=== PATIENT | male | born 1965 | race Caucasian/White ===

== ENCOUNTER 2020-06-16 06:44 | Outpatient (CLI) | payer OTHER, SELFPAY ==
[2020-06-16 07:54] LABS: Cholesterol 167 mg/dL (0-200); HDL Direct 50 mg/dL; Triglycerides 95 mg/dL (<150)
[2020-06-16 08:05] LABS: LDL Cholesterol Direct 108 mg/dL
[2020-06-16 08:09] LABS: Hemoglobin A1C 5.2 % (<5.7)
[2020-06-16 08:26] LABS: Prostate Specific Antigen 0.7 ng/mL (< OR = 4.0)
[2020-06-16 08:59] LABS: Folic Acid 12.8 ng/mL (2.76->20)
== END 2020-06-16 06:45 | disposition home or self-care (01) ==
PROVIDERS: PCP Internal Medicine; Visit Provider Internal Medicine
DX: E53.8 Deficiency of other specified B group vitamins (principal); R73.9 Hyperglycemia, unspecified; Z12.5 Encounter for screening for malignant neoplasm of prostate
CPT/HCPCS: 36415; 80061; 82607; 82746; 83036; 84153; 84443; G0103

== ENCOUNTER 2020-07-29 02:23 | Outpatient (CLI) | payer OTHER, SELFPAY ==
[2020-07-29 18:37] LABS: SARS-CoV-2 RNA PCR Negative
== END 2020-07-29 02:24 | disposition home or self-care (01) ==
LOC: ANHCOVIDDT 02:23
PROVIDERS: PCP Internal Medicine; Visit Provider Podiatrist Foot & Ankle Surgery
DX: Z01.812 Encounter for preprocedural laboratory examination (principal); Z20.822 Contact with and (suspected) exposure to COVID-19
CPT/HCPCS: C9803; U0003; U0005

== ENCOUNTER 2020-08-01 01:59 | Day surgery (SDC) | payer OTHER, SELFPAY ==
[2020-07-28 13:33] VITALS: BMI 27.3
--- NOTE | 2020-07-31 15:23 | WPDANESEPPF ---
Anes - Initial Pre Proc Eval Procedure: Operation Date: 08/01/20 07:30 Proposed Procedures p Fusion First Metatarsalphalangeal Joint Right Foot - Howard Byrd JR, MD Date/Time: 07/31/20 15:23 Surgeon: Howard Byrd JR, MD Pre Op Diagnosis: arthritis 1st MPJ right foot Patient Data Age: 55 Gender: M Height: 1.7 m Weight: 79.38 kg Allergies Allergy/AdvReac Type Severity Reaction Status Date / Time No Known Allergies Allergy Verified 08/01/20 06:12 Home Medications Medication Instructions Recorded Confirmed Type mecobalamin (vitamin B12) 5,000 2,500 mcg PO HS tablet 07/07/20 08/01/20 History mcg disintegrating tablet sertraline 50 mg PO HS 07/28/20 08/01/20 History tadalafil [Cialis] 5 mg PO HS 07/28/20 08/01/20 History tamsulosin 0.4 mg PO HS 07/28/20 08/01/20 History ergocalciferol (vitamin D2) 1,250 mcg PO WEEKLY 08/01/20 08/01/20 History [Vitamin D2] Patient hx anesthesia problems: none Family hx anesthesia problems: none PMFSH Past Medical History Medical History (Updated 07/31/20 @ 15:24 by Sean Vick MD) Arthritis BPPV (benign paroxysmal positional vertigo) Overweight (BMI 25.0-29.9) Family History Family History Mother Patient's mother is in good health Other Family history of arthritis Social History Social History Smoking status: Former smoker Second hand tobacco smoke exposure: No Smoking end date: 07/11/88 Additional smoking assessment comments: STATES STOPPED SMOKING AT AGE 23 Alcohol intake: current Drinks per week: 10 Substance use: current Substance use type: marijuana Other substance usage details: STATES SMOKES MARIJUANA DAILY Living arrangements: with family Spiritual care concerns: No Anes - Eval Final PreProcedure Day of Procedure 07/31/20 15:23 Patient weight: overweight Heart: regular rate and rhythm Lungs: clear to auscultation and normal air movement Airway: Mallampati scale class II Neurological: alert and oriented Last oral intake: >/= 8 hours ASA classification: II Emergent: no Anesthetic plan: proceed Anesthesia type and monitoring: general LMA and ETT Informed Consent: The patient's anesthetic plan and its attendant risks and benefits were discussed with the patient/family/POA. Questions were solicited and answers provided to the satisfaction of the patient/family/POA.
--- NOTE | ~2020-08-01 | XR_ITS ---
EXAMINATION: XR surgery orthopedic DATE: 08/01/2020 08:39 INDICATION: Right first metatarsophalangeal arthrodesis TECHNIQUE: 2 fluoroscopic spot images of the forefoot were obtained during procedure performed by Dr. Byrd. Radiologist was not present for the imaging or procedure. The amount of fluoroscopy time u sed during this procedure was 0.2 minutes. COMPARISON: None. FINDINGS: First metatarsophalangeal arthrodesis with dorsal plate and screw fixation. Alignment is essentially anatomic. No fracture. Mild osteoarthritis at a few interphalangeal joints. IMPRESSION: 1. Expected appearance post right first metatarsophalangeal arthrodesis. Reviewed, dictated and finalized at location A. SERVICE TECHNICIAN
[2020-08-01] MEDS: LACTATED RINGERS 1,000 ML 30 ML IV CONT ×2 (06:31→08:56)
[2020-08-01 06:48] VITALS: BP 116/72; PULSE 89; RESP 16; TEMP 36.7; O2SAT 98
--- NOTE | 2020-08-01 07:01 | WPDHPUPDATE1 ---
History and Physical Update Update Date/Time: 08/01/20 07:01 History and Physical has been reviewed, including an updated exam of the patient. There are NO changes in the patient's condition. Risks, benefits, and alternatives have been discussed and questions answered. Patient agrees to proceed with procedure.
[2020-08-01] MEDS: ceFAZolin 2 GM/D5W 50 ML 2 GM/50 ML BAG IVPB (07:29)
--- NOTE | 2020-08-01 07:34 | WPDANESPNB ---
Anes - Peripheral Nerve Block Date/Time: 08/01/20 07:34 I have discussed with the patient/family/POA the placement of a peripheral nerve block for post-operative pain management, including associated risks, benefits, complications, and side effects. Alternative methods of post-operative analgesia were detailed. Questions were solicited and answers provided to the satisfaction of the patient/family/POA. Time-Out: A pre-procedural Time-Out was completed immediately before starting the procedure and confirmed: Patient Identification, Site, Procedure, Patient Position and the Availability of Requisite Equipment. Clinical Indications: Acute post-operative pain management requested by the operative surgeon. Nerve Block Insertion Note Anes-nerve block: posterior fossa sciatic (20cc) right and adductor canal (10cc) right Patient position: supine Skin prep: chlorhexidine Needle: 22 gauge, stimulating, insulated echogenic needle. Needle length: 80 mm Technique: ultrasound (in plane) Injectate: bupivacaine 0.5% with epi 5 mcg/ml (20cc) Observations: tolerated well Complications: none Procedure start time:: 720 Procedure end time:: 725
[2020-08-01 08:56] VITALS: BP 108/70; PULSE 82; RESP 14; O2SAT 99
--- NOTE | 2020-08-01 09:01 | SUR.OPER ---
Implants right foot MTP Fusion Plate 2.7x14 Locking Screw-2 2.7x12 Locking Screw-2 3.5x28 Lag screw [facility]
--- NOTE | 2020-08-01 09:02 | PM.PROC ---
Procedure Note - Detailed Date of procedure: 08/01/20 Pre-op diagnosis: arthritis 1st MPJ right foot Post-op diagnosis: same Procedure performed: Fusion of the first metatarsal phalangeal joint right foot Implants: [employer] cross check plate with (4) 2.7mm locking screws, and one 3.5mm lag screw Anesthesia: GLMA and regional (Popliteal Fossa Block) Surgeon: Howard Byrd JR, DPM Estimated blood loss (mL): 1 Drains: No Packing: No Pathology: none sent Complications: No immediate complications Condition: stable Disposition: same day Findings: PROCEDURE IN DETAIL: Under mild sedation, the patient was brought into the operating room, placed on the operating table in supine position. A pneumatic ankle tourniquet was placed about the patient's right ankle. A popliteal fossa block was performed by the Anesthesia department. The foot was then scrubbed, prepped, and draped in the usual aseptic manner. An Esmarch bandage was then used to exsanguinate the patient's foot and the pneumatic ankle tourniquet was then inflated. Surgery began in the following manner: Attention was directed to the dorsal aspect of the 1st metatarsophalangeal joint where there was a large osteophyte noted along the dorsomedial aspect of the joint. The incision was made starting along the central shaft of the 1st metatarsal and extending just proximal to the interphalangeal joint of the hallux. The incision was continued deep down through the subcutaneous tissues using sharp and blunt dissection. All bleeders were cauterized as necessary. At this point, the dissection was continued down to the level of the periosteum and capsular structures overlying the 1st metatarsophalangeal joint. A full length periosteum and capsular incision was made just medial to the extensor hallucis longus tendon. The periosteum and capsular structures were freed from the base of the proximal phalanx as well as the distal 1st metatarsal. At this point, the 1st metatarsophalangeal joint was identified. There was complete loss of articular cartilage to the head of the 1st metatarsal as well as the base of the proximal phalanx. There was significant broadening and hypertrophy of the 1st metatarsophalangeal joint. Utilizing a sagittal bone saw, the hypertrophied 1st metatarsal was resected dorsally, medially, and laterally. A power bur was used to make sure that there were no rough edges and also to further debride the hypertrophic 1st metatarsal. Next, a rongeur was used to resect all hypertrophic base of the proximal phalanx. All subchondral bone was debrided with power demian, sagittal saw blade and curette from the head of the 1st metatarsal as well as the base of the proximal phalanx. The cartilage and subchondral bone were fully debrided utilizing the reamer system until healthy bleeding bone was noted. Next, a 2-0 drill bit was used to further fenestrate the head of the 1st metatarsal as well as the base of the proximal phalanx in order to allow fusion across the 1st metatarsophalangeal joint. Next, a 0.045 inch K-wire was driven from the medial aspect of the base of the proximal phalanx into the head of the 1st metatarsal in order to serve as temporary fixation. A large steel plate was used to make sure that the hallux was in a rectus position both in the sagittal plane as well as the frontal and transverse plane. Excellent position of the hallux was noted. Next, a CrossCHECK plate was placed atop the 1st metatarsophalangeal joint held in position with Colton wires. Utilizing standard principles and techniques, the 2 distal drill holes were drilled and two 2.7mm fully-threaded locking screws were driven from dorsal to plantar holding the distal aspect of the plate intact. At this point, a lag screw was driven from dorsal distal to proximal plantar across the 1st metatarsophalangeal joint through the plate system with excellent compression noted after careful removal of the olive wire an
[2020-08-01 09:26] VITALS: BP 100/61; PULSE 79; RESP 14
--- NOTE | 2020-08-01 09:52 | SUR.PHASEII ---
PT AMY BOUGHT A PAIR OF CRUTCHES, I OFFERED TO SIZE UP FOR THEM, PT REFUSED.
== END 2020-08-01 09:45 | disposition home or self-care (01) ==
PROVIDERS: PCP Internal Medicine; Visit Provider Podiatrist Foot & Ankle Surgery
PROC: (CPT 28750; principal; 2020-08-01 07:30)
DX: M19.071 Primary osteoarthritis, right ankle and foot (principal); G89.18 Other acute postprocedural pain; Z87.891 Personal history of nicotine dependence; F12.90 Cannabis use, unspecified, uncomplicated
CPT/HCPCS: 28750; 64445; 64447; C1713; C9803; J0690; J2250; J2704; J3010; J7120; U0003; U0005

== ENCOUNTER 2020-11-18 06:48 | Outpatient (CLI) | payer OTHER, SELFPAY ==
[2020-11-18 07:28] LABS: Basophils Percent Auto 0.4 % (0.2-1.2); Eosinophils Absolute Auto 0.2 K/mm3 (0-0.3); Eosinophils Percent Auto 3.2 % (0-4.4); Hematocrit 43.6 % (42.0-52.0); Hemoglobin 14.2 g/dL (14.0-18.0); Immature Granulocyte Absolute 0.02 K/mm3 (0.00-0.031); Immature Granulocyte Percent A 0.3 % (0-0.5); Lymphocytes Absolute Auto 0.75 K/mm3 (0.9-3.2); Mean Corpuscular HGB Conc 32.6 g/dl (32-36); Mean Corpuscular Hemoglobin 31.3 pg (26-34); Mean Platelet Volume 10.4 fl (7.4-10.4); Monocytes Absolute Auto 0.6 K/mm3 (0.1-0.6); Neutrophils Absolute Auto 5.8 K/mm3 (1.3-6.7); Neutrophils Percent Auto 78.1 % (45.5-73.1); Platelet Count Result 252 k/mm3 (150-375); Red Blood Count 4.54 M/mm3 (4.6-6.20); Red Cell Distribution Width 13.2 % (11.5-14.5); White Blood Count 7.5 K/mm3 (4.5-10.0)
[2020-11-18 07:39] LABS: Alanine Aminotransferase 12 U/L (4-50); Albumin Level 4.3 g/dL (3.5-5.1); Alkaline Phosphatase 59 U/L (38-126); Anion Gap 5 mmol/L (8-16); Aspartate Amino Transferase 24 U/L (17-59); Bilirubin,Total 0.4 mg/dL (0.2-1.3); Blood Urea Nitrogen 12 mg/dL (9-20); CRP 1.1 mg/dL (<1.0); Calcium 9.2 mg/dL (8.4-10.2); Carbon Dioxide 30 mmol/L (22-30); Chloride 103 mmol/L (98-107); Estimated Glomerular Filt Rate > 60; Glucose 126 mg/dL (75-110); Potassium 4.2 mmol/L (3.4-5.0); Sodium 138 mmol/L (137-145)
[2020-11-18 07:57] LABS: Erythrocyte Sedimentation Rate 9 mm/hr (0-20)
[2020-11-18 08:15] LABS: Vitamin D 25 Hydroxy 46.2 ng/mL
== END 2020-11-18 06:49 | disposition home or self-care (01) ==
PROVIDERS: PCP Internal Medicine
DX: M19.90 Unspecified osteoarthritis, unspecified site (principal); Z79.899 Other long term (current) drug therapy; E55.9 Vitamin D deficiency, unspecified
CPT/HCPCS: 36415; 80053; 82306; 85025; 85652; 86140

== ENCOUNTER 2021-06-17 17:00 | Outpatient (CLI) | payer OTHER, SELFPAY ==
--- NOTE | ~2021-06-17 | MR_ITS ---
EXAMINATION: MR shoulder LT wo con DATE: 06/17/2021 17:49 INDICATION: Left shoulder pain TECHNIQUE: Magnetic resonance imaging (MRI) of the affected shoulder was performed without intravenou s contrast. Sequences included axial PD-weighted FS FSE, coronal oblique PD-weighted FS FSE, coronal oblique T2-weighted FS FSE, sagittal PD-weighted FS FSE, and sagittal T1-weighted SE. COMPARISON: 09/26/2017 FINDINGS: Coracoacromial arch: The acromion undersurface is curved in morphology (type II). There is mild lateral downsloping of the acromion with small anterior and lateral subacromial spurs at the attachment of the coracoacromial l igament which remains mildly thickened near its acromial attachment. Mild acromioclavicular osteoarth ritis. Rotator cuff: Interval progression of moderate supraspinatus and anterior infraspinatus tendinopathy. Against seen is a severe articular sided tear extending approximately 2 cm AP along the superior and middle facet footplates of the supraspinatus and conjoined portion of the supraspinatus and infraspinatus tendons which involves greater than two thirds of the tendon thickness. There is a small full-thickness compo nent at the posterior infraspinatus tendon measuring approximately 6 mm AP with 1 cm medial retractio n and small moderate residual frayed tendon material remaining attached along the lateral rim of the footplate. The teres minor tendon is normal. Moderate subscapularis tendinopathy with unchanged mild partial-thickness tear along the lateral rim of the lesser tuberosity footplate where there is mild c ystic change. Normal rotator cuff muscle bulk and signal. Biceps tendon, glenoid labrum and glenohumeral cartilage: Long head of the biceps tendon is normal. There is partial thickness cartilage loss at the cephalad a spect of the glenoid with fissuring and chondral surface regularity posterior superiorly. Small clement nal osteophytes along the posterior superior rim of the glenoid where there is labral degeneration wi th small moderate residual frayed labral tissue. The degeneration extends inferiorly with fraying nikki ng the free edge of the posterior labrum. Normal anterosuperior sublingual foramen. Fluid: Small glenohumeral joint effusion. No loose osteochondral bodies. Small amount of fluid in the subacr omial/subdeltoid bursa which could be related to either mild bursitis or decompressed fluid from the glenohumeral joint space centimeter the full-thickness rotator cuff tear. Bones: Bone alignment is normal. No fracture or pathologic marrow replacing process. IMPRESSION: 1. Interval progression of now moderate supraspinatus and infraspinatus tendinopathy with slight prog ression is a moderate-sized, severe articular sided tear with small full-thickness component at the p osterior supraspinatus tendon. 2. Increased now moderate severity subscapularis tendinopathy with unchanged small mild partial-thick ness tear along the lateral rim of the lesser tuberosity footplate. 3. Unchanged mild glenohumeral osteoarthritis with likely chronic degeneration of the posterior super ior glenoid labrum. 4. Unchanged mild acromioclavicular osteoarthritis. Reviewed, dictated and finalized at location B. DRIVER IMPRESSION: 1. Interval progression of now moderate supraspinatus and infraspinatus tendino mj with slight progression is a moderate-sized, severe articular sided tear with small full-thickness component at the posterior supraspinatus tendon. 2. Increased now moderate severity subscapularis tendinopathy with unchanged sm all mild partial-thickness tear along the lateral rim of the lesser tuberosity footplate. 3. Unchanged mild glenohumeral osteoarthritis with likely chronic degeneration of the posterior superior glenoid
== END 2021-06-17 17:01 | disposition home or self-care (01) ==
LOC: ANHIMG 17:07
PROVIDERS: PCP Internal Medicine
DX: M19.012 Primary osteoarthritis, left shoulder (principal)
CPT/HCPCS: 73221

== ENCOUNTER 2021-06-25 06:53 | Outpatient (CLI) | payer OTHER, SELFPAY ==
--- NOTE | 2021-06-25 | ECG_ITS ---
Measurements Intervals [place] Rate: 77 P: 68 VA: 153 QRS: 43 QRSD: 106 T: 55 QT: 354 QTc: 401 Interpretive Statements SINUS RHYTHM NORMAL ECG Electronically Signed On 06-25-2021 10:54:23 LEASING REPRESENTATIVE by Nathaniel Thomas D.O.
[2021-06-25 07:43] LABS: Hematocrit 42.7 % (42.0-52.0); Hemoglobin 13.9 g/dL (14.0-18.0); Mean Corpuscular HGB Conc 32.6 g/dl (32-36); Mean Corpuscular Hemoglobin 32.4 pg (26-34); Mean Corpuscular Volume 99.5 fl (80-100); Mean Platelet Volume 10.7 fl (7.4-10.4); Platelet Count Result 225 k/mm3 (150-375); Red Blood Count 4.29 M/mm3 (4.6-6.20); Red Cell Distribution Width 12.3 % (11.5-14.5); White Blood Count 7.3 K/mm3 (4.5-10.0)
[2021-06-25 07:51] LABS: Alanine Aminotransferase 17 U/L (4-50); Albumin Level 4.5 g/dL (3.5-5.1); Alkaline Phosphatase 58 U/L (38-126); Anion Gap 5 mmol/L (8-16); Aspartate Amino Transferase 26 U/L (17-59); Bilirubin,Total 0.5 mg/dL (0.2-1.3); Blood Urea Nitrogen 17 mg/dL (9-20); Calcium 9.4 mg/dL (8.4-10.2); Carbon Dioxide 25 mmol/L (22-30); Chloride 104 mmol/L (98-107); Estimated Glomerular Filt Rate > 60; Glucose 122 mg/dL (65-110); Potassium 4.4 mmol/L (3.4-5.0); Sodium 134 mmol/L (137-145)
== END 2021-06-25 06:54 | disposition home or self-care (01) ==
LOC: ANHLAB 06:55
PROVIDERS: PCP Internal Medicine; Visit Provider Orthopaedic Surgery
DX: M75.100 Unspecified rotator cuff tear or rupture of unspecified shoulder, not specified as traumatic (principal); Z01.818 Encounter for other preprocedural examination
CPT/HCPCS: 36415; 80053; 85027; 93005

== ENCOUNTER → 2021-06-26 09:18 | Outpatient (CLI) | payer OTHER, SELFPAY ==
[2021-06-28 16:12] LABS: SARS-CoV-2 RNA PCR Negative (Negative)
== END ==
PROVIDERS: PCP Internal Medicine
DX: R68.89 Other general symptoms and signs (principal); Z20.822 Contact with and (suspected) exposure to COVID-19
CPT/HCPCS: C9803; U0003; U0005

== ENCOUNTER 2021-08-14 07:12 | Outpatient (CLI) | payer OTHER, SELFPAY ==
[2021-08-14 08:00] LABS: Basophils Percent Auto 0.5 % (0.2-1.2); Eosinophils Absolute Auto 0.2 K/mm3 (0-0.3); Eosinophils Percent Auto 4.2 % (0-4.4); Hematocrit 40.8 % (42.0-52.0); Hemoglobin 13.6 g/dL (14.0-18.0); Immature Granulocyte Absolute 0.01 K/mm3 (0.00-0.031); Immature Granulocyte Percent A 0.3 % (0-0.5); Lymphocytes Absolute Auto 0.54 K/mm3 (0.9-3.2); Mean Corpuscular HGB Conc 33.3 g/dl (32-36); Mean Corpuscular Hemoglobin 32.3 pg (26-34); Mean Corpuscular Volume 96.9 fl (80-100); Mean Platelet Volume 10.6 fl (7.4-10.4); Monocytes Absolute Auto 0.5 K/mm3 (0.1-0.6); Neutrophils Absolute Auto 2.6 K/mm3 (1.3-6.7); Platelet Count Result 226 k/mm3 (150-375); Red Blood Count 4.21 M/mm3 (4.6-6.20); Red Cell Distribution Width 12.9 % (11.5-14.5); White Blood Count 3.9 K/mm3 (4.5-10.0)
[2021-08-14 08:11] LABS: Alanine Aminotransferase 43 U/L (4-50); Albumin Level 4.4 g/dL (3.5-5.1); Alkaline Phosphatase 52 U/L (38-126); Anion Gap 4 mmol/L (8-16); Aspartate Amino Transferase 46 U/L (17-59); Bilirubin,Total 0.6 mg/dL (0.2-1.3); Blood Urea Nitrogen 11 mg/dL (9-20); CRP < 0.5 mg/dL (<1.0); Calcium 9.2 mg/dL (8.4-10.2); Carbon Dioxide 28 mmol/L (22-30); Chloride 106 mmol/L (98-107); Cholesterol 216 mg/dL (0-200); Estimated Glomerular Filt Rate > 60; Glucose 109 mg/dL (65-110); HDL Direct 44 mg/dL; Sodium 138 mmol/L (137-145); Triglycerides 153 mg/dL (<150)
[2021-08-14 08:20] LABS: LDL Cholesterol Direct 145 mg/dL
[2021-08-14 08:40] LABS: Prostate Specific Antigen 0.4 ng/mL (< OR = 4.0)
[2021-08-14 09:15] LABS: Folic Acid 16.2 ng/mL (2.76->20)
== END 2021-08-14 07:13 | disposition home or self-care (01) ==
PROVIDERS: PCP Internal Medicine; Visit Provider Internal Medicine
DX: Z12.5 Encounter for screening for malignant neoplasm of prostate (principal); K50.012 Crohn's disease of small intestine with intestinal obstruction; Z51.81 Encounter for therapeutic drug level monitoring; Z79.899 Other long term (current) drug therapy; R53.83 Other fatigue; Z00.00 Encounter for general adult medical examination without abnormal findings
CPT/HCPCS: 36415; 80053; 80061; 82607; 82746; 84153; 84443; 85025; 86140; G0103

== ENCOUNTER 2021-10-26 06:59 | Outpatient (CLI) | payer OTHER, SELFPAY | END 2021-10-26 07:00 | disposition home or self-care (01) | PROVIDERS: PCP Internal Medicine | DX: K50.019 Crohn's disease of small intestine with unspecified complications (principal) | CPT/HCPCS: 36415 ==

== ENCOUNTER 2021-12-21 08:00 | Outpatient (CLI) | payer OTHER, SELFPAY | END 2021-12-21 08:01 | disposition home or self-care (01) | LOC: ANHLAB 08:09 | PROVIDERS: PCP Internal Medicine | DX: K50.019 Crohn's disease of small intestine with unspecified complications (principal); Z79.899 Other long term (current) drug therapy | CPT/HCPCS: 36415; 80145 ==

== ENCOUNTER → 2022-04-22 16:12 | Outpatient (CLI) | payer OTHER, SELFPAY ==
--- NOTE | ~2022-04-22 | XR_ITS ---
EXAMINATION: XR hand LT 2V DATE: 04/22/2022 16:43 INDICATION: Unspecified osteoarthritis, unspecified site. TECHNIQUE: 2 views of left hand were obtained. COMPARISON: Left hand radiographs 03/13/2019 FINDINGS: Bone alignment is normal. No fracture. There is severe osteoarthritis of first carpometacar pal joint and moderate osteoarthritis of second and third metacarpophalangeal joints. There is mild o steoarthritis of most of the interphalangeal joints. There is severe osteoarthritis of second distal interphalangeal joint. IMPRESSION: 1. Polyarticular osteoarthritis. Reviewed, dictated and finalized at location A.
--- NOTE | ~2022-04-22 | XR_ITS ---
EXAMINATION: XR sacroiliac joints min 3V DATE: 04/22/2022 16:43 INDICATION: Sacrococcygeal disorders, not elsewhere classified. TECHNIQUE: 3 views of the sacroiliac joints were obtained. COMPARISON: Sacroiliac joint radiographs 03/13/2019 FINDINGS: Bone alignment is normal. No fracture. There is mild osteoarthritis of the sacroiliac joint s characterized by tiny osteophytes. There are implants between the spinous processes at L3-L4 and L4 -L5. IMPRESSION: 1. Mild osteoarthritis of the sacroiliac joints. No evidence of inflammatory arthropathy. Reviewed, dictated and finalized at location A. IMPRESSION: 1. Mild osteoarthritis of the sacroiliac joints. No evidence of inflammatory ar thropathy.
--- NOTE | ~2022-04-22 | XR_ITS ---
EXAMINATION: XR hand RT 2V DATE: 04/22/2022 16:43 INDICATION: Unspecified osteoarthritis, unspecified site. TECHNIQUE: 2 views of right hand were obtained. COMPARISON: Right hand radiographs 03/13/2019 FINDINGS: Bone alignment is normal. No fracture. There is severe osteoarthritis of first carpometacar pal joint and mild osteoarthritis of many of the metacarpophalangeal joints and interphalangeal joint s. There is severe osteoarthritis of second, third, and fifth distal interphalangeal joints. IMPRESSION: 1. Polyarticular osteoarthritis. Reviewed, dictated and finalized at location A.
== END ==
PROVIDERS: PCP Internal Medicine; Visit Provider Nurse Practitioner Family
DX: M53.3 Sacrococcygeal disorders, not elsewhere classified (principal); M19.041 Primary osteoarthritis, right hand; M19.042 Primary osteoarthritis, left hand
CPT/HCPCS: 72202; 73120

== ENCOUNTER 2022-10-04 07:14 | Outpatient (CLI) | payer OTHER, SELFPAY ==
[2022-10-04 08:23] LABS: Basophils Percent Auto 0.7 % (0.2-1.2); Eosinophils Absolute Auto 0.1 K/mm3 (0-0.3); Eosinophils Percent Auto 2.3 % (0-4.4); Hematocrit 42.3 % (42.0-52.0); Hemoglobin 14.2 g/dL (14.0-18.0); Immature Granulocyte Absolute 0.03 K/mm3 (0.00-0.031); Immature Granulocyte Percent A 0.5 % (0-0.5); Lymphocytes Percent Auto 14.7 % (18.3-44.2); Mean Corpuscular HGB Conc 33.6 g/dl (32-36); Mean Corpuscular Hemoglobin 34.1 pg (26-34); Mean Corpuscular Volume 101.4 fl (80-100); Mean Platelet Volume 10.5 fl (7.4-10.4); Monocytes Absolute Auto 0.8 K/mm3 (0.1-0.6); Monocytes Percent Auto 13.7 % (2.6-8.5); Neutrophils Absolute Auto 4.2 K/mm3 (1.3-6.7); Neutrophils Percent Auto 68.1 % (45.5-73.1); Platelet Count Result 201 k/mm3 (150-375); Red Blood Count 4.17 M/mm3 (4.6-6.20); Red Cell Distribution Width 11.8 % (11.5-14.5); White Blood Count 6.1 K/mm3 (4.5-10.0)
[2022-10-04 08:58] LABS: Alanine Aminotransferase 22 U/L (6-50); Albumin Level 4.6 g/dL (3.5-5.1); Alkaline Phosphatase 62 U/L (38-126); Anion Gap 6 mmol/L (8-16); Aspartate Amino Transferase 29 U/L (17-59); Bilirubin,Total 0.5 mg/dL (0.2-1.3); Blood Urea Nitrogen 19 mg/dL (9-20); CRP < 0.5 mg/dL (<1.0); Calcium 9.2 mg/dL (8.4-10.2); Carbon Dioxide 28 mmol/L (22-30); Chloride 103 mmol/L (98-107); Cholesterol 224 mg/dL (0-200); Estimated Glomerular Filt Rate > 60; Glucose 107 mg/dL (65-110); HDL Direct 49 mg/dL; Potassium 4.6 mmol/L (3.4-5.0); Sodium 137 mmol/L (137-145); Triglycerides 306 mg/dL (<150)
[2022-10-04 09:06] LABS: LDL Cholesterol Direct 113 mg/dL
[2022-10-04 10:35] LABS: Prostate Specific Antigen 0.3 ng/mL (< OR = 4.0)
== END 2022-10-04 07:15 | disposition home or self-care (01) ==
PROVIDERS: PCP Internal Medicine; Visit Provider Internal Medicine
DX: K50.019 Crohn's disease of small intestine with unspecified complications (principal); R53.83 Other fatigue; R74.8 Abnormal levels of other serum enzymes; Z79.899 Other long term (current) drug therapy
CPT/HCPCS: 36415; 80053; 80061; 84153; 84443; 85025; 86140; G0103

== ENCOUNTER → 2023-02-08 08:48 | Outpatient (CLI) | payer OTHER, SELFPAY ==
--- NOTE | ~2023-02-08 | XR_ITS ---
EXAMINATION: CT lumbar spine wo con, XR lumbar spine min 4V DATE: 02/08/2023 09:23 INDICATION: Lumbar spondylolisthesis TECHNIQUE: 1. Computed tomography (CT) of the lumbar spine was performed without intravenous contrast. Automated exposure control and iterative reconstruction technique were employed. The dose-length product was 6 54.28 mGy-cm. 2. 7 views of the lumbar spine were obtained including AP, left and right oblique, lateral views in n eutral, flexion and extension and cone-down lateral lumbosacral view. COMPARISON: Lumbar spine MR dated 08/05 and FINDINGS: A degree lumbar levocurvature. There are fixation devices situated between the spinous processes at L 3-L4 and L4-L5. 6 mm anterolisthesis L4 on L5 which remains unchanged on flexion and extension. No ev ident change in orientation or separation of the 2 fixation devices or the degree of spondylolisthesi s with flexion or extension. Otherwise normal motion of the remainder of the lumbar and lower thoraci c spine. Chronic mild anterior wedging at T12, minimal at L1. Severe disc height loss with vacuum phe nomena and degenerative endplate changes at L5-S1. Mild disc height loss at L2-L3 and L4-L5. Mild to moderate disc height loss at T11-T12 and T12-L1. Mild osteoarthritis at the bilateral sacroiliac join ts. Paravertebral soft tissues are unremarkable. The following disc levels are specifically discussed : T11-T12: Disc is mildly bulging. There is moderate bilateral facet joint osteoarthritis. There is mil d right neural foraminal stenosis. There is minimal central canal stenosis. T12-L1: Disc is mildly bulging. There is mild left and moderate right facet joint osteoarthritis. The re is no neural foraminal stenosis. There is minimal central canal stenosis. L1-L2: Disc is mildly bulging. There is mild bilateral facet joint osteoarthritis. There is no neural foraminal stenosis. There is minimal central canal stenosis. L2-L3: Disc is bulging with suggestion of a small right paracentral disc extrusion extending a few mi llimeters cephalad to the level of the inferior endplate of L2. There is mild bilateral facet joint o steoarthritis. There is mild left and mild to moderate right neural foraminal stenosis. There is mild central canal stenosis. L3-L4: Disc is bulging. There is severe bilateral facet joint osteoarthritis. There is moderate right and mild to moderate left neural foraminal stenosis. There is moderate central canal stenosis. L4-L5: Disc is bulging. There is severe bilateral facet joint osteoarthritis. There is moderate bilat eral neural foraminal stenosis. There is moderate to severe central canal stenosis. L5-S1: Disc is bulging. There is moderate bilateral facet joint osteoarthritis. There is moderate rig ht and severe left neural foraminal stenosis. There is moderate central canal stenosis. IMPRESSION: 1. Interval progression of severe lower lumbar predominant spondylosis. 2. Internal fixation devices extending between the L3-L4 and L4-L5 spinous processes with 6 mm vaishali listhesis L4 on L5 all of which remains unchanged with flexion and extension. Reviewed, dictated and finalized at location L. IMPRESSION: 1. Interval progression of severe lower lumbar predominant spondylosis. 2. Internal fixation devices extending between the L3-L4 and L4-L5 spinous proc esses with 6 mm anterolisthesis L4 on L5 all of which remains unchanged with fl exion and extension.
== END ==
PROVIDERS: PCP Neurological Surgery; Visit Provider Neurological Surgery
DX: M43.16 Spondylolisthesis, lumbar region (principal); M48.061 Spinal stenosis, lumbar region without neurogenic claudication; M47.26 Other spondylosis with radiculopathy, lumbar region
CPT/HCPCS: 72110; 72131

== ENCOUNTER 2023-04-04 09:20 | Outpatient (CLI) | payer OTHER, SELFPAY ==
--- NOTE | ~2023-04-04 | XR_ITS ---
EXAMINATION: XR chest 2V DATE: 04/04/2023 10:13 INDICATION: Crohn disease. Spondylolisthesis, lumbar region. Preop. TECHNIQUE: Frontal and lateral views of the chest were obtained. COMPARISON: Chest 2 views 03/13/2019 FINDINGS: There is no pneumonia, pleural effusion, or pneumothorax. The heart size is normal. There a re changes of anterior fusion procedure in cervical spine. There is mild chronic anterior wedging of multiple vertebral bodies. IMPRESSION: 1. No acute cardiopulmonary disease. Reviewed, dictated and finalized at location A.
--- NOTE | 2023-04-04 09:39 | ECG_ITS ---
Measurements Intervals [place] Rate: 73 P: 56 SD: 157 QRS: 15 QRSD: 97 T: 48 QT: 360 QTc: 398 Interpretive Statements SINUS RHYTHM BASELINE ARTIFACT- I, II, III, AVR, AVL, AVF NORMAL ECG COMPARED TO ECG 06/25/2021 07:48:49 NO SIGNIFICANT CHANGES Electronically Signed On 04-04-2023 10:27:48 CDT by Nathaniel Thomas D.O.
[2023-04-04 10:09] LABS: Appearance Urine Clear (Clear); Bilirubin Urine Negative (Negative); Blood Urine Negative (Negative); Color Urine Yellow (Yellow); Glucose Urine UA Negative (Negative); Hemoglobin 14.4 g/dL (14.0-18.0); Ketones Urine Negative (Negative); Leukocyte Esterase Ur Negative LEU/UL (Negative); Mean Corpuscular HGB Conc 32.7 g/dl (32-36); Mean Corpuscular Hemoglobin 31.8 pg (26-34); Mean Corpuscular Volume 97.1 fl (80-100); Mean Platelet Volume 10.9 fl (7.4-10.4); Nitrate Urine Negative (Negative); Platelet Count Result 216 k/mm3 (150-375); Protein Urine Negative (Negative); Red Blood Count 4.53 M/mm3 (4.6-6.20); Red Cell Distribution Width 12.8 % (11.5-14.5); Specific Grav Ur 1.022 (1.001-1.035); Urobilinogen Urine 0.2 mg/dL (<2.0); White Blood Count 7.4 K/mm3 (4.5-10.0); pH Urine 6.5 (5.0-9.0)
[2023-04-04 10:19] LABS: Anion Gap 7 mmol/L (8-16); Blood Urea Nitrogen 13 mg/dL (9-20); Calcium 9.3 mg/dL (8.4-10.2); Carbon Dioxide 27 mmol/L (22-30); Chloride 102 mmol/L (98-107); Estimated Glomerular Filt Rate > 60; Glucose 93 mg/dL (65-110); Potassium 4.4 mmol/L (3.4-5.0); Sodium 136 mmol/L (137-145)
[2023-04-04 10:22] LABS: INR 0.9; Prothrombin Time 12.8 Seconds (11.1-14.7)
[2023-04-04 10:23] LABS: Partial Thromboplastin Time 27.8 SECONDS (22.3-36.8)
[2023-04-04 10:35] LABS: Add Urine Microscopic? YES
== END 2023-04-04 09:21 | disposition home or self-care (01) ==
LOC: ANHSURGERY 09:24
PROVIDERS: PCP Internal Medicine; Visit Provider Neurological Surgery
DX: M43.16 Spondylolisthesis, lumbar region (principal); Z01.818 Encounter for other preprocedural examination
CPT/HCPCS: 36415; 71046; 80048; 81001; 85027; 85610; 85730; 93005

== ENCOUNTER 2023-04-06 01:04 | Day surgery (SDC) | payer OTHER, SELFPAY ==
[2023-03-29 15:22] VITALS: BMI 28.1
--- NOTE | 2023-03-29 15:27 | PC.NURSE ---
Report to the Outpatient Waiting Room, entrance under the green pavilion located off [facility], at time 6:00 on date 04/06/23. Planned Procedure Time: 7:30. Time changes happen often and if your time is changed the preop area will call you the afternoon before. - You and your visitor will be asked to self-screen and do not enter if you have any COVID symptoms. - A mask is optional within the hospital at this time. Patients may have clear liquids (water, carbonated beverages, clear teas, apple juice) until 3 hours prior to surgery (4:30) with a maximum of 20 ounces. - No food from midnight until time of surgery Take the following medications with a SIP of water the morning of surgery: NONE DO NOT STOP ANY OF YOUR OTHER PRESCRIPTION MEDICATIONS PRIOR TO SURGERY ?EXCEPT THE FOLLOWING Medications to discontinue per physician: VITAMINS Date to take last dose: 04/02/23 Please no make-up, nail greenlandic, hairspray, perfume, deodorant, or body powder the day of surgery. No jewelry (including any body piercings) or valuables the day of surgery, leave them at home. Please take a shower or bath the night before, or the morning of, surgery with an antibacterial soap. Wear comfortable, loose fitting clothing. - Jewelry must be removed prior to entering the operating room. Rings and piercings that are not removed may be cut off. - The hospital will not accept responsibility for valuables. - Please leave all valuables, including medications, at home the day of surgery. If you are going home after surgery, a licensed fence post driver must drive you home. - NO public transportation without another adult if you receive anesthesia. - We recommend that an adult stay with you for 24 hours following discharge. - We also recommend that you do not drive, make important decision, drink alcoholic beverages, or take any drugs that were not prescribed by your health care provider for at least 24 hours after your discharge time. Follow any additional instructions given to you from your surgeon. If you or anyone in your household have experienced Covid symptoms in the past week, please notify your surgeon or the nurse liaison at the phone number below for possible testing. Telephone instructions given to PT - BABITA ARCE and asked if any additional questions and then verbalized understanding. Patient advised to call surgeon office or pre surgery nurse liaison [phone] if any additional questions.
[2023-04-06] VITALS (13 sets, daily range): BP systolic 120–145; BP diastolic 72–91; PULSE 78–93; RESP 10–18; TEMP 36–36.6; O2SAT 94–100; BMI 27.8
--- NOTE | ~2023-04-06 | XR_ITS ---
EXAMINATION: XR fluoroscopy no charge DATE: 04/06/2023 10:56 INDICATION: Lumbar laminectomy TECHNIQUE: Single lateral fluoroscopic spot image of the lower lumbar spine was obtained during proce dure performed by Dr. Galeas. Radiologist was not present for the imaging or procedure. The amount o f fluoroscopy time used during this procedure was 0.1 minutes. COMPARISON: CT dated 02/08/2023 FINDINGS: Soft tissue retractors, the tip of a metallic probe and lap sponge markers projecting over the soft t issues posterior to L5. Unchanged mild grade 1 anterolisthesis L4 on L5 with mild associated disc hei ght loss. Moderate to severe disc height loss at L5-S1. Again seen are interspinous process implant s ituated between the spinous processes of L3-L4 and L4-L5. IMPRESSION: 1. Fluoroscopy utilized during neurosurgical procedure at the lower lumbar spine. See procedure note for further detail. Reviewed, dictated and finalized at location A. IMPRESSION: 1. Fluoroscopy utilized during neurosurgical procedure at the lower lumbar spin e. See procedure note for further detail.
[2023-04-06] MEDS: LACTATED RINGERS 1,000 ML 30 ML IV CONT ×2 (06:33→10:45)
--- NOTE | 2023-04-06 06:33 | WPDANESEPPF ---
Anes - Initial Pre Proc Eval Procedure: Operation Date: 04/06/23 07:30 Proposed Procedures p L4-5, L5-6 Lumbar Laminectomy, Removal Coflex Device at L4-5 - Magalis Galeas MD Date/Time: 04/06/23 06:33 Surgeon: Magalis Galeas MD Pre Op Diagnosis: lumbar stenosis, radiculopathy Patient Data Age: 57 Gender: M Height: 1.7 m Weight: 81.65 kg Allergies Allergy/AdvReac Type Severity Reaction Status Date / Time No Known Allergies Allergy Verified 04/06/23 06:21 Home Medications Medication Instructions Recorded Confirmed Type mecobalamin (vitamin B12) 5,000 2,500 mcg PO HS 07/07/20 04/06/23 History mcg disintegrating tablet tadalafil 5 mg tablet (Cialis) 5 mg PO HS #30 tabs 07/27/22 03/29/23 Rx sertraline 50 mg tablet 75 mg PO HS #135 tabs 12/08/22 03/29/23 Rx pantoprazole 40 mg tablet,delayed 40 mg PO QAM #90 tabs 03/07/23 03/29/23 Rx release risankizumab-rzaa 360 mg/2.4 mL 360 mg subcut ONCE 03/29/23 03/29/23 History (150 mg/mL) subcut wearable injector (Jingizi) Patient hx anesthesia problems: none Family hx anesthesia problems: none Results Review: All pre-operative results and documents have been reviewed as part of the pre-operative evaluation. [facility] Past Medical History Medical History (Updated 01/13/23 @ 10:48 by Magalis Galeas MD) Arthritis BPPV (benign paroxysmal positional vertigo) Overweight (BMI 25.0-29.9) Surgical History Surgical History (Updated 04/06/23 @ 06:34 by Avila Stapleton MD) H/O cervical spine surgery H/O lumbosacral spine surgery History of shoulder surgery Family History Family History (Updated 01/13/23 @ 10:15 by Enid Garg MA) Mother Patient's mother is in good health Lung cancer Other Family history of arthritis Social History Social History Social History: Ronny is somewhat confident filling out medical forms. In the last 12 months he has not received assistance from an organization or program. Patient denies currently using recreational or street drugs. He reports having given himself street drugs with a needle. He denies eating a healthy diet and exercising regularly. His current caffeine intake is 1 cup of coffee per day. He awakens 3 times per night to urinate. He reports having difficulty in getting or maintaining an erection. Smoking status: Former smoker Tobacco type: cigarettes Second hand tobacco smoke exposure: No Smoking end date: 07/11/88 Additional smoking assessment comments: QUIT AGE EARLY 20'S Alcohol intake: current Drinks per week: 6 Substance use: current Substance use type: marijuana Other substance usage details: STATES SMOKES MARIJUANA DAILY Lack of Transportation: No Lack of Food: Never True Current Housing: I Have Housing Concerned About Future Housing: No Difficulty Paying Gas/Electric Bills: No Difficulty Paying for Meds: No Currently Unemployed: No Education: High School Diploma/GED Difficulty w/ Childcare or Family Care: No Living arrangements: with family Occupation/Education: retired Spiritual care concerns: No Anes - Eval Final PreProcedure Day of Procedure 04/06/23 06:33 Patient weight: overweight Heart: regular rate and rhythm Lungs: clear to auscultation Airway: Mallampati scale class III and special considerations poor opening and poor extension Neurological: alert and oriented Last oral intake: >/= 8 hours ASA classification: III Emergent: no Anesthetic plan: proceed Anesthesia type and monitoring: general ETT and standard monitoring Results Review: All pre-operative results and documents have been reviewed as part of the pre-operative evaluation. Informed Consent: The patient's anesthetic plan and its attendant risks and benefits were discussed with the patient/family/POA. Questions were solicited and answers provided to the satisfaction of the patient/family/POA.
--- NOTE | 2023-04-06 07:26 | WPDHPUPDATE1 ---
History and Physical Update Update Date/Time: 04/06/23 07:26 History and Physical has been reviewed, including an updated exam of the patient. There are NO changes in the patient's condition. Risks, benefits, and alternatives have been discussed and questions answered. Patient agrees to proceed with procedure. To OR for L4-5, L5-S1 laminectomies, removal of Coflex device at L4-5
--- NOTE | 2023-04-06 07:27 | PM.IMHP ---
H&P: HPI History of Present Illness Date/Time: 04/06/23 07:27 Chief Complaint: right leg pain Narrative: From 01/13: Mr. Hanson is a 57-year-old male with history of Crohn's disease and psoriatic arthritis who is referred by Dr. Boateng for a 2nd opinion regarding his lumbar spine. ? The patient has had a long history of low back pain over the years which has generally been tolerable for him.? He has had many injections over the years through [facility] in [place] and had a Coflex interlaminar stabilization device implanted in 2015.? This past March, the patient began having pain? starting in the lower right lumbar region radiating into the buttock and down the front of the thigh to the knee.? He denies any inciting event.? The thigh pain is really his main complaint at this time.? It is constant and worsens in particular with standing and when initially waking up in the morning.? He has some paresthesias in this area.? He has had pain in his left leg in the past, but nothing within the last year.? He denies any weakness of his legs or bowel or bladder changes.? ? He attempted a few sessions of physical therapy, but he did not like the treatment plan of this therapist, so he has not returned.? He does smoke cannabis for pain which is somewhat helpful. He has tried multiple injections through [facility] office at multiple levels, none of which have been beneficial for him.? He saw Dr. Caballero who recommended a staged procedure in the form of what sounds like a 3 level ALIF followed by a posterior instrumentation. ? The patient felt that this was an extreme form of surgery and is not enthusiastic about undergoing a multiple day procedure.? He therefore requested a 2nd opinion. ? Of note, he has had a previous ACDF C3-[address] Dat Weir around 2013 for radicular arm and neck pain.? He continues to have pain in his neck and his left arm which is currently being managed fairly well with therapy and injections.? He denies any myelopathic symptoms.? He does have quite a bit of hand pain bilaterally which has been attributed to his psoriatic arthritis, and he is being started on medication for this.? He recently left his job due to all of his medical issues.? He does not smoke tobacco and does not take any blood thinners. From 02/24: ? Since his last visit, he has completed a full course of physical therapy which has only worsened his symptoms.? He continues to have back pain radiating down the lateral aspect of his right thigh to his knee.? He denies any left-sided symptoms or new symptoms since his last visit.? He notes that he is scheduled to get an injection of Skyrizi today for his Crohn's disease following which he will have injections every 3 months. ? Of note, he follows with a helper marble finisher at [facility], Dr. Sarina Castillo for this. Review of Systems Review of Systems: All systems reviewed & are unremarkable except as noted in HPI and below PMFSH Past Medical History Medical History (Updated 01/13/23 @ 10:48 by Magalis Galeas MD) Arthritis BPPV (benign paroxysmal positional vertigo) Overweight (BMI 25.0-29.9) Surgical History Surgical History (Updated 04/06/23 @ 06:34 by Avila Stapleton MD) H/O cervical spine surgery H/O lumbosacral spine surgery History of shoulder surgery Family History Family History (Updated 01/13/23 @ 10:15 by Enid Garg MA) Mother Patient's mother is in good health Lung cancer Other Family history of arthritis Social History Social History Social History: Ronny is somewhat confident filling out medical forms. In the last 12 months he has not received assistance from an organization or program. Patient denies currently using recreational or street drugs. He reports having given himself street drugs with a needle. He denies eating a healthy diet and exercising regularly. His current caffeine intake is 1 cup of coffee
[2023-04-06] MEDS: ceFAZolin 2 GM/D5W 50 ML 2 GM/50 ML BAG IVPB ×3 (07:35→21:52)
[2023-04-06] MEDS: BUPIVACAINE/EPINEPHRINE 0.5% 50 ML VIAL 10 ML INFILTRATE (08:10)
--- NOTE | 2023-04-06 10:42 | PM.OP ---
Procedure Note - Brief Procedure Note - Brief Date of procedure: 04/06/23 lumbar stenosis, radiculopathy Post-op diagnosis: Same Procedure performed: L4-5, L5-S1 laminectomies, removal of Coflex device at L4-5 Surgeon: Magalis Galeas MD Anesthesia: GETA and local Findings: Coflex device removed at L4-5. Lamis performed at L4-5 and L5-S1. Fair amount of epidural scar tissue present, particularly at L4-5 disc/interlaminar space Estimated blood loss (mL): 100 Drains: Yes Packing: No Pathology: Yes Complications: None Condition: Stable Disposition: PACU
--- NOTE | 2023-04-06 12:09 | ADMGEN ---
This patient, Ronny Hanson, was admitted to Medical Room 246-01. Patient/family oriented to hospital policies and general routines including ID bracelet, bed and alarms, visiting hours, pain management, procedures, bathroom and other care routines, personal items, smoking policy, room service/diet, and visiting hours. Information on how to activate the Rapid Response Team has been discussed. Patient/Family are encouraged to report perceived risks to care and to ask questions if they do not understand what they are told or what they should do.
[2023-04-06] MEDS: oxyCODONE HCL (*CRX) 5 MG TAB IR PO (12:25)
[2023-04-06] MEDS: SODIUM CHLORIDE 0.9% IV 1,000 ML 100 ML IV CONT (12:26)
--- NOTE | 2023-04-06 14:42 | W.PM.PROC2 ---
Procedure Note - Detailed Date of Procedure 04/06/23 Pre-op Diagnosis lumbar stenosis, radiculopathy Post-op Diagnosis Same Procedure Performed 1. Removal of interspinous Coflex device at L4-5 2. Lumbar laminectomies at L4-5, L5-S1 3. Use of microscope for microsurgical dissection 4. Use of C-arm for fluoroscopy Surgeon Magalis Galeas MD [employer] Rol[employer] PINKY Lo Anesthesia General and Local Indications Mr. Hanson is a 57-year-old male with history of back and particularly radicular right leg pain which has been unresponsive to multiple conservative measures. He previously had interspinous devices placed at L3-4 and L4-5. Imaging revealed severe central stenosis at L4-5 and L5-S1. Surgery in the form of removal of the coflex device at L4-5 and L4-5, L5-S1 laminectomies was recommended. Risks including bleeding, pain, infection, CSF leak, nerve damage, weakness, numbness, failure to relieve symptoms, and anesthetic risks were discussed. The patient provided written informed consent to proceed. Description of Procedure The patient was brought to the operating room, and general anesthesia was induced. The patient was placed prone on the open Jose M table, and all pressure points were padded. Compression devices were placed on the patient's calves. The skin was cleaned with alcohol. The C-arm was brought onto the field to localize the appropriate disc space and assist with incisional planning. The area was prepped and draped in usual sterile fashion. A time out was conducted, and pre-operative antibiotics were administered. Local anesthesia was injected into the planned incision. The previous midline skin incision was reopened with a 10-blade scalpel, and dissection was carried down with the monopolar cautery to open the fascia. Once the spinous processes were located, a subperiosteal dissection was performed to expose the laminae bilaterally. Significant scar tissue and bone growth was noted at the L4-5 level in particular around the Coflex device. A self-retaining retractor was placed. The C-arm was brought in to confirm the correct level. The Coflex device was exposed between the L4 and L5 laminae with the bovie, currettes, and the Leksell. Due to the bone growth and scar tissue present around the device, the exposure of the device was slow and time consuming. Eventually, we were able to squeeze the two sides of the device together to release the prongs from the spinous processes. The device was sent for gross specimen. We then turned our attention to the decompression. A Leksell rongeur was used to remove the spinous processes of L4 and L5 and posterior elements. The high-speed drill was used to thin the laminae to the ligamentum flavum. A curved currette was used to separate the ligament from the bone. Kerrison rongeurs were then used to remove remaining laminae and ligamentum flavum. At the level of the interspinous device, there was scarred ligamentum adherent to the dura. I attempted to separate this from the dura, but due to concern for causing a CSF leak, and as the tissue was soft and therefore not compressing the dura, I elected to leave this in place. Medial facetectomies and foraminotomies were performed at both levels with the kerrison as well. The facet joints were undercut to widen the spinal canal. A Woodsen was then passed into the foraminae on the right side to ensure they were open. The dura appeared well decompressed. Hemostasis was ensured, and the area was copiously irrigated. No evidence of CSF leak was noted. A hemovac drain was placed and tunneled inferiorly. The muscle was loosely approximated with 0-Vicryl. The fascia was closed with 0-Vicryl in an interrupted fashion. The soft tissue was again copiously irrigated. The dermis was closed with 2-0 and 3-0 interrupted Vicryl. The skin was closed with 3-0 running nylon. The drain was secured with a 3-0 nylon as well. Sterile dressings were applied. The patient was returned supine on the [facility],
[2023-04-06] MEDS: ACETAMINOPHEN 500 MG TABLET 1000 MG PO (17:54)
[2023-04-06] MEDS: oxyCODONE HCL (*CRX) 5 MG TAB IR 10 MG PO (18:58)
[2023-04-07 01:47] VITALS: BP 122/74; PULSE 78; RESP 16; TEMP 36.4; O2SAT 99
[2023-04-07] MEDS: oxyCODONE HCL (*CRX) 5 MG TAB IR 10 MG PO ×2 (02:35→08:48)
[2023-04-07] MEDS: ceFAZolin 2 GM/D5W 50 ML 2 GM/50 ML BAG IVPB (05:06)
[2023-04-07 05:47] VITALS: BP 123/70; PULSE 75; RESP 18; TEMP 36.9; O2SAT 98
[2023-04-07] MEDS: SERTRALINE HCL 25 MG TABLET 75 MG PO (08:39)
[2023-04-07] MEDS: CYANOCOBALAMIN 500 MCG TABLET PO (08:39)
[2023-04-07] MEDS: CYANOCOBALAMIN 1,000 MCG TABLET 2000 MCG PO (08:40)
[2023-04-07] MEDS: PANTOPRAZOLE 40 MG TABLET PO (08:40)
[2023-04-07] MEDS: ONDANSETRON INJ 4 MG/2 ML VIAL IV PUSH (08:55)
[2023-04-07 09:32] VITALS: BP 127/70; PULSE 86; RESP 16; TEMP 36.4; O2SAT 98
--- NOTE | 2023-04-07 10:05 | WPDANESPN ---
Anes - Prog Note Post-Op Date/Time: 04/07/23 10:05 Cardiovascular status: normal Respiratory status: normal Airway patency: baseline Mental status: baseline Post-Op hydration status: normal Vital Signs: Last Vital Signs Temp 36.4 C L 04/07/23 09:32 Pulse 86 04/07/23 09:32 Resp 16 04/07/23 09:32 BP 127/70 04/07/23 09:32 Pulse Ox 98 04/07/23 09:32 O2 Del Method Room Air 04/07/23 10:02 O2 Flow Rate 8 04/06/23 10:55 Pain Score (VAS): 10 I/O: Intake & Output 04/06/23 04/07/23 04/07/23 23:59 07:59 15:59 Intake Total 272 50 790 Output Total 770 290 Balance -498 -240 790 Post-procedural complaints: none Patient Feedback: Patient satisfied with anesthetic care.
--- NOTE | 2023-04-07 13:01 | WPDNEUROSGPN ---
Progress Note: A&P Assessment and Plan (1) Status post lumbar laminectomy: Code(s): Z98.890 - Other specified postprocedural states Status: Acute Plan s/p removal of Coflex device at L4-5, L4-S1 laminectomies on 04/06 Plan: -Hemovac drain removed at bedside -Discharge home this afternoon with medications including Medrol dosepak -Follow up in 2 weeks for suture removal -Wound care instructions and restrictions reviewed Subjective Date/time seen: 04/07/23 13:01 Interval history: Mr. Hanson is having incisional pain and persistent right leg pain which is overall unchanged compared to pre-op. He is also noticing some right groin pain. Medications are somewhat helpful. He is voiding independently and ambulated with therapy. He would like to go home today Review of Systems Review of Systems: All systems reviewed & are unremarkable except as noted in HPI and below Exam Narrative: Full strength in lower extremities Sensation intact Dressing c/d/i HV 335cc out since surgery, 65cc since midnight Objective Data Vital Signs Vital Signs: Vital Signs - 24 hr 04/06/23 13:28 04/06/23 13:45 04/06/23 16:04 Temperature 97.6 F Pulse Rate 88 Respiratory Rate 14 Blood Pressure 135/80 Pulse Oximetry 97 Oxygen Delivery Room Air Room Air 04/06/23 17:47 04/06/23 21:10 04/07/23 01:47 Temperature 97.6 F 97.6 F 97.6 F Pulse Rate 78 82 78 Respiratory Rate 15 16 16 Blood Pressure 131/78 120/80 122/74 Pulse Oximetry 98 99 99 Oxygen Delivery 04/07/23 05:47 04/07/23 09:27 04/07/23 09:32 Temperature 98.5 F 97.5 F L Pulse Rate 75 86 Respiratory Rate 18 16 Blood Pressure 123/70 127/70 Pulse Oximetry 98 98 Oxygen Delivery Room Air 04/07/23 10:02 Temperature Pulse Rate Respiratory Rate Blood Pressure Pulse Oximetry Oxygen Delivery Room Air Intake/Output Intake/Output: Intake & Output 04/04/23 04/05/23 04/06/23 04/07/23 23:59 23:59 23:59 23:59 Intake Total 672 840 Output Total 770 290 Balance -98 550 Meds/Results Medications: Active Medications Generic Name Dose Route Start Last Admin Trade Name Freq PRN Reason Stop Dose Admin Acetaminophen 1,000 mg 04/06/23 10:50 04/07/23 12:33 Acetaminophen 500 Mg Tablet PO Not Given Q6H ILANA Al Hydrox/Mg Hydrox/Simethicone 20 ml 04/06/23 10:46 Mag Hydrox/Al Hydrox/Simeth 30 Ml Udc PO Q4H PRN Indigestion/Heartburn Bisacodyl 10 mg 04/06/23 10:46 Bisacodyl 10 Mg Suppository RECTAL DAILY PRN Constipation Cyanocobalamin 2,000 mcg 04/07/23 09:00 04/07/23 08:40 Cyanocobalamin 1,000 Mcg Tablet PO 2,000 mcg QAM ILANA Administration Cyanocobalamin 500 mcg 04/07/23 09:00 04/07/23 08:39 Cyanocobalamin 500 Mcg Tablet PO 500 mcg QAM ILANA Administration Cyclobenzaprine HCl 10 mg 04/06/23 10:46 Cyclobenzaprine Hcl 10 Mg Tablet PO TID PRN Muscle Spasms Docusate Sodium 100 mg 04/06/23 21:00 04/07/23 08:59 Docusate Sodium 100 Mg Capsule PO Not Given Q12HR ILANA Cefazolin Sodium 2 gm in 50 mls @ 100 mls/hr 04/06/23 14:00 04/07/23 05:36 Ancef 2 Gm/D5w 50 Ml IVPB Infused Q8HR ILANA Infusion Sodium Chloride 1,000 mls @ 100 mls/hr 04/06/23 10:50 04/06/23 14:43 Normal Saline Iv IV CONT 30 mls/hr .Q10H ILANA Infusion Miscellaneous Information 0 each 04/06/23 00:01 Tadalafil [Cialis] 5 Mg Tablet = Non Formulary XX 05/06/23 00:00 CLARIFY ILANA Non-Formulary Medication 5 mg 04/06/23 21:00 Tadalafil [Cialis] PO 05/06/23 20:59 HS ILANA Ondansetron HCl 4 mg 04/06/23 10:46 04/07/23 08:55 Ondansetron Inj 4 Mg/2 Ml Vial IV PUSH 4 mg Q8H PRN Administration Nausea And Vomiting Oxycodone HCl 5 mg 04/06/23 10:46 04/06/23 12:25 Oxycodone Hcl (*Crx) 5 Mg Tab Ir PO 5 mg Q6H PRN Administration Pain Rated 4-6 Oxycodone HCl 10 mg 04/06/23 10:46 04/07/23 08:48 Oxycodone Hcl (*Crx) 5 M
--- NOTE | 2023-04-07 13:25 | PC.NURSE ---
On 04/07/23, the student, [Derek Arriola], provided care and completed [facility] documentation on this patient. I have reviewed the student's documentation and agree with the findings.
== END 2023-04-07 13:35 | disposition home or self-care (01) ==
LOC: ANHSURGERY 05:47 → ANH2MED 12:04
PROVIDERS: PCP Internal Medicine; Visit Provider Neurological Surgery
PROC: (CPT 63005; principal; 2023-04-06 07:30)
DX: M48.061 Spinal stenosis, lumbar region without neurogenic claudication (principal); M54.16 Radiculopathy, lumbar region; K50.90 Crohn's disease, unspecified, without complications; L40.50 Arthropathic psoriasis, unspecified; Z79.620 Long term (current) use of immunosuppressive biologic; Z87.891 Personal history of nicotine dependence; Z98.1 Arthrodesis status; F12.90 Cannabis use, unspecified, uncomplicated
CPT/HCPCS: 63047; 63048; 22850; 36415; 71046; 80048; 81001; 85027; 85610; 85730; 88300; 93005; 97161; 97530; 99199; A9270; J0690; J1100; J1170; J2250; J2371; J2405; J2704; J3010; J7030; J7120

== ENCOUNTER 2023-06-17 14:31 | Outpatient (CLI) | payer MEDICAID, SELFPAY ==
--- NOTE | ~2023-06-17 | XR_ITS ---
XR hip RT 2V w AP pelvis 06/17/2023 14:52 Indication: Right hip pain. Nontrauma. Procedure: 3 views right hip including AP pelvis Comparison: 04/22/2022 Findings: There is mild bilateral osteoarthritis of the hips. Pelvic rings are intact. No acute fract ure or traumatic malalignment. Impression: 1: Mild bilateral osteoarthritis of the hips. Reviewed, dictated and finalized at location B. STANT DISTRIBUTION MANAGER Impression: 1: Mild bilateral osteoarthritis of the hips.
== END 2023-06-17 14:32 | disposition home or self-care (01) ==
LOC: ANHIMG 14:38
PROVIDERS: PCP Internal Medicine; Visit Provider Physician Assistant
DX: R10.31 Right lower quadrant pain (principal); M16.0 Bilateral primary osteoarthritis of hip
CPT/HCPCS: 73502

== ENCOUNTER 2023-09-12 08:08 | Outpatient (CLI) | payer OTHER, SELFPAY ==
[2023-09-12 08:43] LABS: Basophils Percent Auto 0.7 % (0.2-1.2); Eosinophils Absolute Auto 0.2 K/mm3 (0-0.3); Eosinophils Percent Auto 3.6 % (0-4.4); Hematocrit 42.2 % (42.0-52.0); Hemoglobin 13.3 g/dL (14.0-18.0); Immature Granulocyte Absolute 0.01 K/mm3 (0.00-0.031); Immature Granulocyte Percent A 0.2 % (0-0.5); Lymphocytes Absolute Auto 0.96 K/mm3 (0.9-3.2); Lymphocytes Percent Auto 16.6 % (18.3-44.2); Mean Corpuscular HGB Conc 31.5 g/dl (32-36); Mean Corpuscular Hemoglobin 29.5 pg (26-34); Mean Corpuscular Volume 93.6 fl (80-100); Mean Platelet Volume 10.6 fl (7.4-10.4); Monocytes Absolute Auto 0.6 K/mm3 (0.1-0.6); Monocytes Percent Auto 10.6 % (2.6-8.5); Neutrophils Absolute Auto 3.9 K/mm3 (1.3-6.7); Neutrophils Percent Auto 68.3 % (45.5-73.1); Platelet Count Result 232 k/mm3 (150-375); Red Blood Count 4.51 M/mm3 (4.6-6.20); Red Cell Distribution Width 13.8 % (11.5-14.5); White Blood Count 5.8 K/mm3 (4.5-10.0)
[2023-09-12 09:05] LABS: Alanine Aminotransferase 23 U/L (6-50); Albumin Level 4.4 g/dL (3.5-5.1); Alkaline Phosphatase 59 U/L (38-126); Anion Gap 6 mmol/L (8-16); Aspartate Amino Transferase 33 U/L (17-59); Bilirubin,Total 0.8 mg/dL (0.2-1.3); Blood Urea Nitrogen 13 mg/dL (9-20); CRP 0.6 mg/dL (<1.0); Calcium 9.2 mg/dL (8.4-10.2); Carbon Dioxide 25 mmol/L (22-30); Chloride 107 mmol/L (98-107); Cholesterol 197 mg/dL (0-200); Estimated Glomerular Filt Rate > 60; Glucose 108 mg/dL (65-110); HDL Direct 41 mg/dL; Potassium 4.1 mmol/L (3.4-5.0); Sodium 138 mmol/L (137-145); Triglycerides 127 mg/dL (<150)
[2023-09-12 09:14] LABS: LDL Cholesterol Direct 137 mg/dL
[2023-09-12 09:19] LABS: Erythrocyte Sedimentation Rate 12 mm/hr (0-20)
[2023-09-12 10:12] LABS: Hepatitis B Surface Antigen Negative (Negative)
[2023-09-14 16:28] LABS: NIL 0.01 IU/mL; Quantiferon TB Plus, 1T NEGATIVE (NEGATIVE); TB1-NIL 0.03 IU/mL
[2023-09-15 13:24] LABS: Red Blood Cell Folate 533 ng/mL RBC (>280)
== END 2023-09-12 08:09 | disposition home or self-care (01) ==
PROVIDERS: PCP Internal Medicine
DX: K50.012 Crohn's disease of small intestine with intestinal obstruction (principal); Z79.899 Other long term (current) drug therapy; Z00.00 Encounter for general adult medical examination without abnormal findings
CPT/HCPCS: 36415; 80053; 80061; 82607; 82747; 85025; 85652; 86140; 86480; 87340

== ENCOUNTER 2023-09-23 10:06 | Outpatient (CLI) | payer OTHER, SELFPAY ==
--- NOTE | ~2023-09-23 | XR_ITS ---
AP view of the pelvis and AP and lateral views of the right hip Clinical history: Pain Findings: No acute fracture or dislocation is seen. Osseous alignment is anatomic. Minimal degenerati ve change of the right hip joint noted. Soft tissues are unremarkable. Impression: Minimal degenerative change of the right hip joint. Reviewed, dictated and finalized at [facility]. Impression: Minimal degenerative change of the right hip joint.
== END 2023-09-23 10:07 | disposition home or self-care (01) ==
LOC: ANHIMG 10:07
PROVIDERS: PCP Internal Medicine; Visit Provider Orthopaedic Surgery
DX: M16.11 Unilateral primary osteoarthritis, right hip (principal)
CPT/HCPCS: 73502

== ENCOUNTER 2024-01-03 08:34 | Outpatient (CLI) | payer OTHER, SELFPAY ==
[2024-01-03 20:08] LABS: Prostate Specific Antigen 1.2 ng/mL (< OR = 4.0)
== END 2024-01-03 08:35 | disposition home or self-care (01) ==
LOC: ANHLAB 08:35
PROVIDERS: PCP Internal Medicine; Visit Provider Internal Medicine
DX: Z12.5 Encounter for screening for malignant neoplasm of prostate (principal)
CPT/HCPCS: 36415; 84153; G0103

== ENCOUNTER 2024-11-20 09:05 | Outpatient (CLI) | payer MEDICARE, SELFPAY ==
--- OUTSIDE RECORDS SUMMARY | 2024-11-20 09:12 | XMS_ITS | Encounter Summary ---
Author Organization [facility] Address [address] [place] [address] Phone Care Team Providers Care Leather Finisher Name Role Phone Kenny Boateng MD Primary Care Provider [phone] Encounter Details Date Type Department Care Team (Late st Contact Info) Description 10/26/2021 Orders Only [facility] Scanning, Provider Social History Tobacco Use Types Packs/Day Years Used Date Smoking Tobacco: Former Smokeless Tobacco: Never Alcohol Use Standard Drinks/Week Comments Yes 0 (1 standard drink = 0.6 oz pur e alcohol) AUDIT-C Answer Date Recorded Q1: How often do you have a drink containing alc ohol? 2-3 times a week 03/11/2021 Q2: How many drinks containi ng alcohol do you have on a typical day when you are drinking? 1 or 2 03/11/2021 Q3: How often do you have si x or more drinks on one occasion? Never 03/11/2021 Sex and Gender Information Value Date Recorded Sex Assigned at Not on file Legal Sex Male 9:15 PM FUDGE [employer]AND[employer] Gender Identity Not on file Sexual Orientation Not on file documented as of this encounter Plan of Treatment Not on file documented as of this encounter Procedures Procedure Name Priority Date/Time Associated Diagnosis Comments SCAN - LABS 10/26/2021 documented in this encounter Results * SCAN - LABS (10/26/2021) us Provider Scanning Edited Result - Final documented in this encounter Visit Diagnoses Not on filedocumented in this encounter Care Teams Leather Finisher Relationship Specialty Start Date End Date Kenny Boateng MD [address] [facility] [address] [place] [address] PCP - General 07/07/16 documented as of this encounter
--- OUTSIDE RECORDS SUMMARY | 2024-11-20 09:12 | XMS_ITS | Clinical Summary ---
Author Organization [facility] Address [address] [facility] [place] [address] Care Team Providers Care Resource Economist Name Role Phone JohanKenny lorenzo Jessy ALEJO Primary Care Provider [phone] Phu Weir MD Unavailable [phone] Source Comments [facility],non-owned Affiliates and Associated Physician Practices is amultiple site organization consisting of ambulatory clinics and hospital sitesin [place], [place], [place] and [place]. This disclosure is being madepursuant to the Care Everywhere program and may not contain all information available regarding this patient. Last updated 18.[facility] Allergies No known active allergies Medications * Be aware that medications may not be up to date on this document. Alwaysverify current medications with the patient. Tadalafil (CIALIS PO) Take by mouth. Active Esomeprazole Magnesium (NEXIUM PO) Take by mouth. Active oxymetazoline (AFRIN NASAL SPRAY) 0.05 % nasal spray Haven 1 Haven into each nostril 2 times daily. Active hydrocodone-luther taminophen (NORCO) 5-325 MG tablet Take 1-2 Tabs by mouth every 4 hours as needed for Pain. 50 Tab 0 05/08/2014 Active piroxicam (FELDENE) 20 MG capsule Take 1 Cap by mouth once daily. 30 Cap 5 07/08/2014 Active diclofenac sodium (VOLTAREN) 1 % gel Apply 4 g to affected area 4 times daily. 4 Tube 5 07/16/2014 Active celecoxib (CELEBREX) 200 MG capsule TAKE ONE CAPSULE BY MOUTH EVERY DAY 30 Cap 11 11/25/2014 Active diazepam (VALIUM) 5 MG tablet TAKE 1 TABLET BY MOUTH THREE TIMES DAILY NEEDED FOR MUSCLE SPASM 60 Tab 3 02/10/2015 Active Active Problems Problem Noted Date Diagnosed Date Spinal stenosis, lumbar uma on, without neurogenic claudication 02/24/2012 Social History Tobacco Use Types Packs/Day Years Used Date Smoking Tobacco: Some Days Cigarettes 0.1 28 Pipe Smokeless Tobacco: Former Quit: 05/02/1982 Tobacco Cessation:Ready to Q uit: No; Counseling Given: Yes Alcohol Use Standard Drinks/Week Comments Yes 8.3 (1 standard drink = 0.6 oz p ure alcohol) Sex and Gender Information Value Date Recorded Sex Assigned at Not on file Legal Sex Male 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 Gender Identity Not on file Sexual Orientation Not on file 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 Not on file Not on fi le Last Filed Vital Signs Vital Sign Reading Time Taken Comments Blood Pressure 141/87 05/02/2014 5:40 PM CDT Pulse 85 05/02/2014 5:40 PM CDT Temperature 36.7 C (98 F) 05/02/2014 5:40 PM CDT Respiratory Rate 18 05/02/2014 5:40 PM CDT Oxygen Saturation 99% 05/02/2014 5:40 PM CDT Inhaled Oxygen Concentration - - Weight 81.6 kg (180 lb) 11/18/2014 2:34 PM CDT Height 170.2 cm (5' 7 ) 11/18/2014 2:34 PM CDT Body Mass Index 28.19 11/18/2014 2:34 PM CDT Plan of Treatment Health Maintenance Due Date Last Done Comments COLOGUARD (AGES 45-75) - COL ON CA SCREENING 1965 COLON MONITORING 1965 COLONOSCOPY - COLON CA SCREENING 1965 CT COLONOGRAPHY - COLON CA SCREENING 1965 Colorectal Cancer Screening 1965 FIT - COLON CA SCREENING 1965 FLEX SIG - COLON CA SCREENING 1965 LIPID TESTING 1965 HIV SCREENING 1980 HEPATITIS C SCREENING 06/02/1983 DTAP/TDAP/TD VACCINES (1 - Tdap) 1984 HEPATITIS B VACCINE (1 of 3 - 19+ 3-dose series) 1984 PNEUMOCOCCAL VACCINE 50+ (1 of 2 - PCV) 1984 ZOSTER VACCINE (1 of 2) 2015 COVID-19 VACCINE (1 - 2023-2 5 season) 2024 DEPRESSION SCREENING 07/11/2024 INFLUENZA VACCINE (Season Ended) 2025 HIB VACCINE Aged Out No longer eligi ble based on patient's age to complete this topic HPV VACCINE Aged Out No longer eligi ble based on patient's age to complete this topic MENINGOCOCCAL (Group B) VACC INE SHARED DECISION-MAKING Aged Out No longer eligibl e based on patient's age to complete this topic MENINGOCOCCAL GROUPS A/C/Y/W VACCINE Aged Out No longer eligible b ased on patient's age to complete this topic Medical Devices Implanted Type Area Fishing Captain Device Identifier Shelf Expiration Date Model / Serial / Lot Gemma Zuletax Bone 1.0cc - [id number] Implanted:Qty : 1 on 05/02/2014 by Phu Weir MD at [facility] Sp[facility] Cervical Spinal [employer] 11/29/2016 [id number] / [id number] / Space Cerv - [id number] Implanted:Qty : 1 on 05/02/2014 by Phu Weir MD at [facility] Sp[facility] Cervical Medtronic [employer] 02/19/2017 [facility] [employer] / [id number] / [id number] Description:Cervical 4-5 SN#[id number] [id number] Space Cerv - [id number] Implanted:Qty : 1 on 05/02/2014 by Phu Weir MD at [facility] Sp[facility] Cervical [employer] 01/28/2017 [facility] [employer] / [id number] / [id number] Description:Cervical 5-6 Space Cerv - [id number] Implanted:Qty : 1 on 05/02/2014 by Phu Weir MD at [facility] Sp[facility] Cervical [employer] 01/24/2017 [facility] [employer] / [id number] / [id number] Description:Cervical 6-7 Plate Ant Cerv Assem 62.5mm Implanted:Qty : 1 on 05/02/2014 by Phu Weir MD at [facility] Cervical [employer] [id number] / / Scrw Self Drill Fuad 4.0 X 15 Implanted:Qty : 2 on 05/02/2014 by Phu Weir MD at [facility] Cervical [employer] [id number] / / Scrw Self Drill Fuad 4.0 X 17 Implanted:Qty : 6 on 05/02/2014 by Phu Weir MD at [facility] Sp[facility] Cervical [employer] Spine [id number] / / Insurance [facility] [employer]ETNA [facility] SELF PAY NO INSURANCE Member Subscriber Plan / Payer (Ef fective for All Dates) Name:Giacomo Arce Member ID:Not on file Relation to Subscriber:Self Name:Giacomo Arce Subscriber ID:Not on file Payer ID:Not on file Group ID:Not on file Type:Self Pay Address: [place], [place] Advance Directives * Full Code (Latest Code Status on File) Date Activated Date Inactivated Comments 05/02/2014 1:29 PM 05/02/2014 8:24 PM Care Teams Resource Economist Relationship Specialty Start Date End Date Kenny Boateng DO [address] [place] [address] PCP - General Internal Medicine 01/03/12 Phu Weir MD [address] [place] [address] Neurological Surgery 02/21/12
--- OUTSIDE RECORDS SUMMARY | 2024-11-20 09:13 | XMS_ITS | Referral Summary ---
Author Organization [facility] Address [address] [place] [address] Care Team Providers Care Solution Maker Name Role Phone Kenny Boateng MD Primary Care Provider [phone] Allergies Active Allergy Reactions Criticality Noted Date Comments Iodinated Contrast Media Nausea & Vomiting Low 06/[address] (PROTONIX) 40 mg EC tablet take 1 tablet by oral route every day 0 0 6 Active tadalafil (CIALIS) 5 mg tablet take 1 tablet by oral route every day 0 0 6 Active sertraline (ZOLOFT) 50 mg tablet take 1 tablet by oral route every day 0 0 6 Active folic acid (FOLVITE) 1 mg tabletIndicatio ns:Crohn's disease of small intestine with intestinal obstruction (HCC) Take 1 tablet (1 mg total) by mouth daily 30 tablet 11 4 Active predniSONE (DELTASONE) 10 mg tabletIndicatio ns:autoimmune disease Take 3 tablets (30 mg) by mouth daily as directed. Contact office in one week with a progress report. 90 tablet 4 Active risankizumab-rz aa (Skyrizi) 360 mg/2.4 mL (150 mg/mL) wearable injectorIndicat ions:Crohn's Disease 1 Cartridge by subcutaneous (via wearable injector) route every 8 weeks 2.4 mL 1 4 Active Active Problems Problem Noted Date Diagnosed Date Joint pain in both hands 02/13/2022 Assessment & Plan (02/13/2022 12:52 PM CDT): Patient does not seem to be having of robust response to Humira and azathioprine with regards to joint pain. We would recommend that he reestablish with a rn integrated. If his endoscopic procedures cannot be scheduled in a short time frame, we will consider a Medrol Dosepak to help with his hand pain. Rash 02/13/2022 Assessment & Plan (02/13/2022 12:54 PM CDT): The red spots on his skin do not look like an overt paradoxical psoriasis. Not clear exactly what they represent so would recommend follow-up with Dermatology. Irritable bowel syndrome with diarrhea Assessment & Plan (02/13/2022 12:51 PM CDT): Patient is encouraged to take a small dose of Imodium before bedtime and again in the morning if needed. This dose can be increased if well tolerated. As he complains of a lot of tenesmus and urgency, we suspect he may have some rectal spasms and will offer him Levsin. If he continues to have a lot of symptoms but his Crohn's appears to be in remission, he may benefit from other neuromodulators High risk medications (not anticoagulants) long- term use 06/19/2021 Assessment & Plan (02/13/2022 12:53 PM CDT): We will repeat quarterly labs today Crohn's disease of small int estine with intestinal obstruction 04/28/2021 Assessment & Plan (02/13/2022 12:49 PM CDT): As the patient now has adequate Humira levels and previously had an appropriate 6 TG on azathioprine, we would like to repeat a colonoscopy and EGD to evaluate his response to therapy. Imaging has been helpful but unfortunately the patient indicates that he had substantial trouble with oral CT contrast (severe nausea vomiting). His drug list reports IV contrast instead. It is not clear if he would tolerate an MR enterography or a small bowel follow-through better. His most recent imaging was done without oral and IV contrast. We will recheck safety labs along with metabolites today. If the patient is not well controlled on Humira, we may need to transition to another therapy ideally 1 that would have benefits to his joints. He does not remember methotrexate helping his joints much. He is also not sure prednisone was particularly helpful. We would recommend that he reestablish care with Dermatology and Rheumatology still allow him the most options for effective treatment Plan 1. Safety labs today including metabolites 2. Continue current medications for now 3. Repeat colonoscopy plus EGD as soon as possible to evaluate response to therapy 4. Consider imaging but will need further insight on exactly what he is able to tolerate. 5. Patient is to establish care with Rheumatology and Dermatology to offer the most targeted and collaborative treatment for his conditions Resolved Problems Problem Noted Date Diagnosed Date Resolved Date Chronic diarrhea 03/02/2021 06/19/2021 Overview (03/02/2021): Added automatically from request for surgery [id number] Social History Tobacco Use Types Packs/Day Years Used Date Smoking Tobacco: Former Smokeless Tobacco: Never Tobacco Cessation:Counseling Given: Not Answered Alcohol Use Standard Drinks/Week Comments Yes 0 (1 standard drink = 0.6 oz pur e alcohol) AUDIT-C Answer Date Recorded Q1: How often do you have a drink containing alc ohol? 2-3 times a week 03/01/2022 Q2: How many drinks containi ng alcohol do you have on a typical day when you are drinking? 1 or 2 03/01/2022 Q3: How often do you have si x or more drinks on one occasion? 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 Gender Identity Not on file Sexual Orientation Not on file Last Filed Vital Signs Vital Sign Reading Time Taken Comments Blood Pressure 116/72 12/27/2023 10:30 AM CDT Pulse 69 12/27/2023 10:30 AM CDT Temperature 37.1 C (98.7 F) 12/27/2023 9:30 AM CDT Respiratory Rate 16 12/27/2023 10:30 AM CDT Oxygen Saturation 96% 12/27/2023 10:30 AM CDT Inhaled Oxygen Concentration - - Weight 81.2 kg (179 lb) 12/27/2023 9:30 AM CDT Height 170.2 cm (5' 7 ) 12/27/2023 9:30 AM CDT Body Mass Index 28.04 12/27/2023 9:30 AM CDT Plan of Treatment Not on file Procedures Procedure Name Priority Date/Time Associated Diagnosis Comments COLONOSCOPY 03/01/2022 9:50 AM CDT from Last 3 Months or Most Recently Relevant to Health Maintenance Results * COLONOSCOPY (03/01/2022 9:50 AM CDT) Anatomical Region Laterality Modality Other Narrative Procedure Note Sarina Castillo MD PhD - 03/01/2022 9:50 AM CDT ENDOSCOPY LAB Patient Name: Ronny Hanson Procedure Date: 03/01/2022 9:50 AM Date of : 1965 Admit Type: Outpatient Age: 56 Gender: Male Attending MD: Sarina Castillo MD,PHD Room: [facility] ENDOSCOPY ROOM 03 Note Status: Finalized Procedure: Colonoscopy Indications: Disease activity assessment of Crohn's disease ofthe small bowel, Assess therapeutic response to therapyof Crohn's disease of the small bowel Providers: Sarina Castillo MD, PHD Referring MD: Kenny Boateng MD Medicines: Monitored Anesthesia Care Complications: No immediate complications. Estimated Blood Loss: Estimated blood loss: none. Procedure: Pre-Anesthesia Assessment: - Immediately prior to administration ofmedications, the patient was re-assessed for adequacy to receive sedatives. The benefits, risks and alternatives of theprocedure and sedation were discussed and informed consentwas obtained. All questions were answered. Please referto the signed informed consent document in the medical record. The scope was passed under direct vision.The [id number] was introduced through the anusand advanced to the terminal ileum. The colonoscopy was performed without difficulty. The patient tolerated the procedure well. The quality of the bowel preparation was excellent. The quality of the bowel preparation was evaluated using the BBPS (BostonBowel Preparation Scale) with scores of: Right Colon = 3, Transverse Colon = 3 and Left Colon = 3 (entiremucosa seen well with no residual staining, smallfragments of stool or opaque liquid). The total BBPS score equals 9. The bowel preparation used was SUPREP via split dose instruction. Bowel prep was administered using a split dose. Findings: The perianal and digital rectal examinations were normal. The terminal ileum contained a single 5 mm ulcer with stenosis, which could not be traversed. It could not be dilated given known 10 cm TI involvement on previouis imaging study. Biopsies were taken with acold forceps for histology. The rest of terminal ileum appeared normal. Biopsies were taken witha cold forceps for histology. Normal mucosa was found in the entire colon. Biopsies were taken witha cold forceps for histology. The entire examined colon appeared normal on direct and retroflexion views. Impression: - A single ulcer with stenosis in the terminalileum. Biopsied. Significant improvement compared to thelast colonoscopy. - The rest of the terminal ileum was normal.Biopsied. - Normal mucosa in the entire colon. Biopsied. - The entire examined colon is normal on direct and retroflexion views. Recommendation: - Await pathology results. - Await MRE - Need to see rheumatology and dermatology soon - Return to GI clinic as previously scheduled. Attending Participation: I personally performed the entire procedure. Electronically signed by Sarina Castillo MD. Sarina Castillo MD, PHD 03/01/2022 10:18:28 AM Number of Addenda: 0 Note Initiated On: 03/01/2022 9:50 AM Sarina Castillo MD PhD ENDOSCOPY PROCEDURES Jennifer l Result from Last 3 Months or Most Recently Relevant to Health Maintenance Insurance GENERIC COPAY ASSIST [address] [facility] [id number] [place] [address] [facility] Advance Directives For more information, please contact: [phone] * Full Code (Latest Code Status on File) Date Activated Date Inactivated Comments 03/01/2022 8:19 AM 03/01/2022 3:16 PM * Full Code Date Activated Date Inactivated Comments 03/11/2021 1:33 PM 03/11/2021 8:34 PM Care Teams Solution Maker Relationship Specialty Start Date End Date Kenny Boateng MD [address] [facility] [address] [place], [place] [id number] PCP - General 07/07/16
--- OUTSIDE RECORDS SUMMARY | 2024-11-20 09:13 | XMS_ITS | Encounter Summary ---
Author Organization [facility] Address [address] [place] [address] Care Team Providers Care Field Specialist Name Role Phone Kenny Boateng DO Primary Care Provider [phone] Phu Weir MD Unavailable [phone] Encounter Details Date Type Department Care Team (Late st Contact Info) Description 10/04/2018 Lab Requisition [facility] Care DermPath Lab [address] [facility] [place] [address] Daniela Thornton MD [address] [facility] [address] [place] [address] Social History Tobacco Use Types Packs/Day Years Used Date Smoking Tobacco: Some Days Cigarettes 0.1 28 Pipe Smokeless Tobacco: Former Quit: 05/02/1982 Alcohol Use Standard Drinks/Week Comments Yes 8.3 (1 standard drink = 0.6 oz p ure alcohol) Sex and Gender Information Value Date Recorded Sex Assigned at Not on file 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 Answer Date of Assessment Author No 05/02/2014 7:20 PM Renée Hart RN * Is person blind or have serious difficulty seeing? Answer Date of Assessment Author No 05/02/2014 7:20 PM CDRenée Ash RN * Does person have serious difficulty walking/climbing stairs? Answer Date of Assessment Author No 05/02/2014 7:20 PM Renée Hart RN * Does person have difficulty dressing/bathing? Answer Date of Assessment Author No 05/02/2014 7:20 PM Renée Hart RN * Does person have difficulty doing errands alone? Answer Date of Assessment Author No 05/02/2014 7:20 PM Renée Hart RN documented as of this encounter Mental Status * Does person have difficulty concentrating/remembering/making decisions? Answer Entry Date Author No 05/02/2014 7:20 PM Renée Hart RN documented in this encounter Plan of Treatment Not on file documented as of this encounter Procedures Procedure Name Priority Date/Time Associated Diagnosis Comments DERMATOPATHOLOGY Routine 10/03/2018 12:0 0 AM CDT documented in this encounter Results * DERMATOPATHOLOGY (10/03/2018 12:00 AM CDT) Case Report Dermatopathology Report Case: [id number] Authorizing Provider: Daniela Thornton MD Collected: 10/03/2018 12:00 AM Pathologist: Giselle Mariano MD Received: 10/04/2018 07:09 AM Specimen: Skin, left upper arm 9 12:31 PM CDT DERMATOPATHOLOGY LABORATORY Final Diagnosis Specimen A. SKIN, left upper arm: BENIGN VERRUCOUS KERATOSIS (L82.1) EPIDERMAL NECROSIS SUGGESTIVE OF EXCORIATION (L98.499) 9 12:31 PM CDT DERMATOPATHOLOGY LABORATORY Clinical History ISK vs other. 9 12:31 PM CDT DERMATOPATHOLOGY LABORATORY Gross Description Specimen A: Received is one formalin filled container labeled with the patient's name and designated left upper arm. The specimen consists of a shave biopsy measuring 9x7x2 mm. Jar 0. 9 12:31 PM CDT DERMATOPATHOLOGY LABORATORY Microscopic Description Specimen A. SKIN, left upper arm: Sections show hyperkeratosis, papillomatosis, hypergranulosis, and acanthosis. These histological findings can be seen in a verruca vulgaris or a seborrheic keratosis. The epidermis is focally necrotic and covered with a scale-crust. There is fibrin at the base. 12:31 PM CDT DERMATOPATHOLOGY LABORATORY Disclaimer An external and internal positive and negative controls are appropriate for the histochemical, immunohistochemical and immunofluorescence stain(s) in this case (if any), except where stated explicitly. The performance characteristics of the stain(s) cited in this report were developed and its performance characteristic determined by the Dermatopathology Laboratory at [facility], directed by Dr. Naheed Phipps. These tests need not be, and therefore are not, approved by the [place] Food and Drug Administration. The tests are used for clinical purposes. Billing Codes Specimen Charges Stain Charges 54283 1 12:31 PM CDT DERMATOPATHOLOGY LABORATORY Embedded Images 12:31 PM CDT DERMATOPATHOLOGY LABORATORY Pathology/Cytolog y TISSUE SPECIMEN FROM SKIN / Unknown 10/03/2018 10/04/2018 7:09 AM CDT Daniela Thornton MD LAB - PATHOLOGY/CYTOLOGY OR DERABLES Final Result DERMATOPATHOLOGY LABORATORY [facility] - Department of Dermatology [address] [facility] Lab [address] [phone] documented in this encounter Visit Diagnoses Not on filedocumented in this encounter Care Teams Field Specialist Relationship Specialty Start Date End Date Kenny Boateng DO [address] [address] PCP - General Internal Medicine 01/03/12 Phu Weir MD [address] [address] Neurological Surgery 02/21/12 documented as of this encounter
--- OUTSIDE RECORDS SUMMARY | 2024-11-20 09:13 | XMS_ITS | Encounter Summary ---
Author Organization [facility] Address [address] [facility] [place] [address] Care Team Providers Care Line Installation Supervisor Name Role Phone Kenny Boateng DO Primary Care Provider [phone] Phu Weir MD Unavailable Encounter Details Date Type Department Care Team (Late st Contact Info) Description 07/23/2014 Therapy Visit [facility] Phu Weir MD [address] [facility] [address] [place] [address] Social History Tobacco Use Types Packs/Day Years Used Date Smoking Tobacco: Some Days Cigarettes 0.1 28 Pipe Smokeless Tobacco: Former Quit: 05/02/1982 Alcohol Use Standard Drinks/Week Comments Yes 8.3 (1 standard drink = 0.6 oz p ure alcohol) Sex and Gender Information Value Date Recorded Sex Assigned at Not on file 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 Answer Date of Assessment Author No 05/02/2014 7:20 PM Renée Hart RN * Is person blind or have serious difficulty seeing? Answer Date of Assessment Author No 05/02/2014 7:20 PM Renée Hart RN * Does person have serious difficulty [...] on file documented as of this encounter Visit Diagnoses Not on filedocumented in this encounter Care Teams Line Installation Supervisor Relationship Specialty Start Date End Date Kenny Boateng DO [address] [place] [address] PCP - General Internal Medicine 01/03/12 Phu Weir MD [address] [place] [address] Neurological Surgery 02/21/12 documented as of this encounter
--- OUTSIDE RECORDS SUMMARY | 2024-11-20 09:13 | XMS_ITS | Encounter Summary ---
Author Organization [facility] Address [address] [place] [address] Phone Care Team Providers Care Land Management Forester Name Role Phone Kenny Boateng MD Primary Care Provider [phone]- [phone] Encounter Details Date Type Department Care Team (Late st Contact Info) Description 09/12/2023 Orders Only [facility] Scanning, Provider [...] Never 03/01/2022 Personal Safety Answer Date Recorded Have you ever been in or are you currently in a harmful physical or emotional relationship or is someone making you feel afraid or unsafe? 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 Gender Identity Not on file Sexual Orientation Not on file documented as of this encounter Plan of Treatment Not on file documented as of this encounter Procedures Procedure Name Priority Date/Time Associated Diagnosis Comments SCAN - LABS 09/12/2023 documented in this encounter Results * SCAN - LABS (09/12/2023) us Provider Scanning Final Result documented in this encounter Visit Diagnoses Not on filedocumented in this encounter Care Teams Land Management Forester Relationship Specialty Start Date End Date Kenny Boateng MD [address] [facility] [address] [place] [address] PCP - General 07/07/16 documented as of this encounter
--- OUTSIDE RECORDS SUMMARY | 2024-11-20 09:13 | XMS_ITS | Encounter Summary ---
Author Organization [facility] [employer] of [facility] Address [address] [place] [address] Phone Care Team Providers Care Tape Recording Machine Operator Name Role Phone Kenny Boateng MD Primary Care Provider [phone]- [phone] Kenny Boateng MD Primary Care Provider +1- [phone] Encounter Details Date Type Department Care Team (Late st Contact Info) Description 10/07/2015 Orders Only [facility] Scanning, Provider Social History Tobacco Use Types Packs/Day Years Used Date Smoking Tobacco: Never Assessed Sex and Gender Information Value Date Recorded Sex Assigned at Not on file 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 Gender Identity Not on file Sexual Orientation Not on file documented as of this encounter Plan of Treatment Not on file documented as of this encounter Procedures Procedure Name Priority Date/Time Associated Diagnosis Comments SCAN - RADIOLOGY/IMAGING 10/06/2015 documented in this encounter Results * SCAN - RADIOLOGY/IMAGING (10/06/2015) Anatomical Region Laterality Modality Other us Provider Scanning Edited Result - Final documented in this encounter Visit Diagnoses Not on filedocumented in this encounter Care Teams Tape Recording Machine Operator Relationship Specialty Start Date End Date Kenny Boateng MD [address] [facility] [address] [place] [address] PCP - General 07/07/16 Kenny Boateng MD [address] [facility] [address] [place] [address] PCP - General 06/15/16 07/06/16 documented as of this encounter
--- OUTSIDE RECORDS SUMMARY | 2024-11-20 09:13 | XMS_ITS | Clinical Summary ---
Author Organization [facility] Address [address] [place] [address] Care Team Providers Care Wharf Labourer Name Role Phone Kenny Boateng MD Primary Care Provider [phone]- [phone] Allergies Active Allergy Reactions Criticality Noted Date [...] would recommend that he reestablish with a clerk travel reservations. If his endoscopic procedures cannot be scheduled [...] (03/02/2021): Added automatically from request for surgery [id number] Surgical History Surgery Date Site/Laterality Comments ANTERIOR CERVICAL DISCECTOMY W/ FUSION 07/11/2013 - 06/12 ROTATOR CUFF REPAIR UPPER GASTROINTESTINAL ENDOSCOPY LUMBAR LAMINECTOMY 07/11/2014 - 07/10/2015 Medical History Medical History Date Comments Arthritis Degenerative disc disease, lumbar Joint pain Crohn disease (HCC) 2020 Family History Medical History Relation Name Comments Colon cancer Maternal Grandfather Lung cancer Mother Colon cancer Mother's Brother Crohn's disease Mother's Sister Rheum arthritis Other Family histo ry of Rheumatoid arthritis; Relation Name Status Comments Maternal Grandfather Mother Mother's Brother Mother's Sister Other Sister Alive Social History Tobacco Use Types Packs/Day Years [...] on file 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 Gender Identity Not on file Sexual Orientation Not on file Obstetrics History Last Filed Vital Signs Vital Sign Reading [...] 12/27/2023 9:30 AM CDT Plan of Treatment Health Maintenance Due Date Last Done Comments Depression Screening 1965 Hepatitis C Screening 1965 Prostate Cancer Screening-PSA 1965 DTaP/Tdap/Td Vaccine (1 - Tdap) 1976 Hepatitis B Screening 1983 Regular Well Visit/Exam 18-64 1983 Zoster Vaccine (1 of 2) 2015 Covid-19 Vaccine (3 - 2023-2 5 season) 2024 09/08/2020, 08/18/2020 Influenza Vaccine (Season Ended) 2025 Colon Cancer Screening-Colonoscopy 03/01/2032 03/01/2022, 03/11/2021 Pneumococcal vaccine <65 Aged Out No longer eligible based on patient's age to complete this topic Procedures Procedure Name Priority Date/Time Associated Diagnosis [...] Male Attending MD: Sarina Castillo MD,PHD Room: [facility] ENDOSCOPY ROOM 03 Note Status: Finalized [...] The scope was passed under direct vision.The [id number] was introduced through the anusand advanced to [...] 0 Note Initiated On: 03/01/2022 9:50 AM us Sarina Castillo MD PhD ENDOSCOPY PROCEDURES Jennifer l Result from Last 3 Months or Most Recently Relevant to Health Maintenance Insurance GENERIC COPAY ASSIST [address] [facility] [id number] [place] [address] [facility] [employer]ET[employer] SIG [id number] [facility] Advance Directives For more information, please contact: [phone] * Full Code (Latest Code Status on File) Date Activated Date Inactivated Comments 03/01/2022 8:19 AM 03/01/2022 3:16 PM * Full Code Date Activated Date Inactivated Comments 03/11/2021 1:33 PM 03/11/2021 8:34 PM Care Teams Wharf Labourer Relationship Specialty Start Date End Date Kenny Boateng MD [address] [place] [address] PCP - General 07/07/16
--- OUTSIDE RECORDS SUMMARY | 2024-11-20 09:13 | XMS_ITS | Clinical Summary ---
Author Organization [facility] Address [address] [place] [address] Care Team Providers Care Associate Professor Of Biostatistics Name Role Phone Kenny Boateng MD Primary Care Provider [phone] Allergies Active Allergy Reactions Criticality Noted Date Comments Iodine Rash,GI Upset Medium 03/03/2024 Medications SKYRIZI 360 MG/2.4ML body injector Inject 2.4 mLs (360 mg total) into the skin every 30 (thirty) days. 02/10/2024 Active baclofen (LIORESAL) 10 MG tablet Take 1 tablet (10 mg total) by mouth nightly at bedtime. 02/27/2024 Active famotidine (PEPCID) 20 MG tablet Take 1 tablet (20 mg total) by mouth nightly at bedtime. 02/27/2024 Active tadalafil (CIALIS) 5 MG tablet Take 1 tablet (5 mg total) by mouth nightly at bedtime. at bedtime. 01/25/2024 Active Active Problems Problem Noted Date Diagnosed Date Crohn's disease with complication ([facility] HHS/H CC) 03/07/2024 CC (Crohn's colitis), with fistula ([facility]) 03/07/2024 SBO (small bowel obstruction) ([facility]) 02/27/2024 Joint pain in both hands 02/13/2022 Overview (02/27/2024): Last Assessment & Plan: Patient does not seem to be having of robust response to Humira and azathioprine with regards to joint pain. We would recommend that he reestablish with a cigarette stamper. If his endoscopic procedures cannot be scheduled in a short time frame, we will consider a Medrol Dosepak to help with his hand pain. Rash 02/13/2022 Overview (02/27/2024): Last Assessment & Plan: The red spots on his skin do not look like an overt paradoxical psoriasis. Not clear exactly what they represent so would recommend follow-up with Dermatology. Irritable bowel syndrome with diarrhea Overview (02/27/2024): Last Assessment & Plan: Patient is encouraged to take a small [...] remission, he may benefit from other neuromodulators Crohn's disease of ileum wit h complication ([facility]) 04/28/2021 Overview (02/27/2024): Last Assessment & Plan: As the patient now has adequate Humira [...] targeted and collaborative treatment for his conditions Spinal stenosis, lumbar uma on, without neurogenic claudication 02/24/2012 Family History Medical History Relation Comments GI problems Mother Relation Status Comments Mother Social History Tobacco Use Types Packs/Day Years Used Date Smoking Tobacco: Never Smokeless Tobacco: Never Alcohol Use Standard Drinks/Week Comments Not Currently 0 (1 standard drink = 0.6 oz pur e alcohol) [facility] Utilities Answer Date Recorded In the past 12 months has e [email or web address], gas, oil, or water [employer] threatened to shut off services in your home? No 02/27/2024 Humiliation, Afraid, Rape, and Kick questionnair e Answer Date Recorded Within the last year, have y ou been afraid of your partner or ex-partner? No 02/27/2024 Within the last year, have y ou been humiliated or emotionally abused in other ways by your partner or ex-partner? No Within the last year, have y ou been kicked, hit, slapped, or otherwise physically hurt by your partner or ex-partner? No 02/27/2024 Within the last year, have y ou been raped or forced to have any kind of sexual activity by your partner or ex-partner? No 02/27/2024 Overall Financial Resource Strain (CARDIA) Answe r Date Recorded How hard is it for you to pa y for the very basics like food, housing, medical care, and heating? Not hard at all 02/27/2024 Hunger Vital Sign Answer Date Recorded Within the past 12 months, y ou worried that your food would run out before you got the money to buy more. Never true 02/27/20 24 Within the past 12 months, t he food you bought just didn't last and you didn't have money to get more. Never true 02/27/2024 PRAPARE - Transportation Answer Date Re corded In the past 12 months, has l ack of transportation kept you from medical appointments or from getting medications? No 02/08 In the past 12 months, has l ack of transportation kept you from meetings, work, or from getting things needed for daily living? No 02/27/2024 Housing Stability Vital Sign Answer Kevin e Recorded In the last 12 months, was t here a time when you were not able to pay the mortgage or rent on time? No 02/27/2024 In the past 12 months, how m any times have you moved where you were living? 0 02/27/2024 At any time in the past 12 [facility], were you homeless or living in a long-term (including now)? No 02/27/2024 Sex and Gender Information Value Date Recorded Sex Assigned at Not on file Legal Sex Male 7:59 PM CDT Gender Identity Not on file Sexual Orientation Not on file Last Filed Vital Signs Vital Sign Reading Time Taken Comments Blood Pressure 110/79 04/09/2024 1:34 PM CDT Pulse 62 04/09/2024 1:34 PM CDT Temperature 36.2 C (97.2 F) 04/09/2024 1:34 PM CDT Respiratory Rate 17 03/06/2024 12:51 PM CDT Oxygen Saturation 95% 04/09/2024 1:34 PM CDT Inhaled Oxygen Concentration - - Weight 81.6 kg (180 lb) 04/09/2024 1:34 PM CDT Height 170.2 cm (5' 7 ) 04/09/2024 1:34 PM CDT Body Mass Index 28.19 04/09/2024 1:34 PM CDT Plan of Treatment Health Maintenance Due Date Last Done Comments Colorectal Cancer Screening Colonoscopy (10 Years) 1965 Annual Physical 1968 Hepatitis C 1983 DTaP, Tdap and Td Vaccines ( 1 - Tdap) 1984 Pneumococcal Vaccine: 50+ Years (1 of 1 - PCV) 2015 Zoster Vaccines (1 of 2) 2015 COVID-19 Vaccine (2023-2 5 season) 2024 09/08/2020, 08/18/2020 PHQ-2 (Physician [place]) 07/11/2024 Meningococcal B Vaccine Aged Out No l onger eligible based on patient's age to complete this topic Meningococcal Vaccine Aged Out No sherron bolivar eligible based on patient's age to complete this topic RSV Immunizations Under 20 Months Aged Out No longer eligible b ased on patient's age to complete this topic Insurance [employer] Advance Directives Documents on File Type Date Recorded Patient Geography Professor Expl anation Advance Directives and Living Will 03/01/2024 8:16 AM 02/29/2024 [place] STATUTORY SHORT FORM POA FOR HEALTH CARE * Full Code (Latest Code Status on File) Date Activated Date Inactivated Comments 02/27/2024 3:12 PM 03/04/2024 1:47 PM Healthcare Agents on File Name Relationship Healthcare Agent Relationshi p Communication Abena Hanson Spouse Health Care Agent Care Teams Associate Professor Of Biostatistics Relationship Specialty Start Date End Date Kenny Boateng MD [address] [place] [address] PCP - General INTERNAL MEDICINE 05/11/22
--- NOTE | 2024-11-20 11:15 | NEURO_ITS ---
Impression: # Complains of numbness of left hand. Not diabetic. # Left mild Carpal Tunnel Syndrome. # Left ulnar neuropathy across the elbow. # Abnormal needle/EMG exam. Nerve Conduction Studies Anti Sensory Summary Table Stim Site NR Peak (ms) P-T Amp (µV) Site1 Site2 Delta-P (ms) Dist (cm) Darrian (m/s) Left Median Anti Sensory (2-3nd Digit) Wrist 3.8 13.6 Wrist 2-3nd Digit 3.8 14.0 37 Wrist 3.8 6.1 Wrist 2-3nd Digit 3.8 14.0 37 Left Radial Anti Sensory (Base 1st Digit) Wrist 2.0 19.9 Wrist Base 1st Digit 2.0 0.0 Left Ulnar Anti Sensory (5th Digit) Wrist 2.8 19.2 Wrist 5th Digit 2.8 14.0 50 Motor Summary Table F Wave Studies NR F-Lat (ms) L-R F-Lat (ms) Left Median (Mrkrs) (Abd Poll Brev) 30.70 Left Ulnar (Mrkrs) (Abd Dig Min) 27.84 EMG Side Muscle Nerve Root Ins Act Fibs Amp Dur Recrt Comment Left 1stDorInt Ulnar C8-T1 Nml Nml Incr >12ms +1 Left Ext Indicis Radial (Post Int) C7-8 Nml Nml Nml Nml Nml Left Ext Digitorum Radial (Post Int) C7-8 Nml Nml Nml Nml Nml Left BrachioRad Radial C5-6 Nml Nml Nml Nml Nml Left PronatorTeres Median C6-7 Nml Nml Nml Nml Nml Left Abd Poll Brev Median C8-T1 Nml Nml Incr >12ms Nml Left ABD Dig Min Ulnar C8-T1 Nml Nml Incr >12ms +1 Left FlexPolLong Median (Ant Int) C7-8 Nml Nml Nml Nml Nml Left Abd Poll Long Radial (Post Int) C7-8 Nml Nml Nml Nml Nml MTDD
== END 2024-11-20 09:06 | disposition home or self-care (01) ==
PROVIDERS: PCP Internal Medicine; Visit Provider Internal Medicine
DX: R20.2 Paresthesia of skin (principal); G56.02 Carpal tunnel syndrome, left upper limb; G56.22 Lesion of ulnar nerve, left upper limb
CPT/HCPCS: 95886; 95909

== ENCOUNTER 2024-12-04 10:11 | Outpatient (CLI) | payer MEDICARE, SELFPAY ==
--- NOTE | ~2024-12-04 | XR_ITS ---
HISTORY: S93.409A - Sprain of unspecified ligament of unspecified ... COMPARISON: None TECHNIQUE: 2 views of the right ankle were performed FINDINGS: No acute fracture or dislocation. No significant soft tissue swelling. The ankle mortise is preserved. Bone mineralization is age-appropriate. IMPRESSION: No acute fracture or dislocation. Reviewed, dictated and finalized at location A.
--- OUTSIDE RECORDS SUMMARY | 2024-12-04 10:16 | XMS_ITS | Encounter Summary ---
Author Organization [facility] Health Address [address] [place] [address] Care Team Providers Care Hand I Blocker Name Role Phone Kenny Boateng DO Primary Care Provider [phone]- [phone] Phu Weir MD Unavailable Encounter Details Date Type Department Care Team (Late st Contact Info) Description 07/23/2014 Therapy Visit EXTERNAL NON-[facility] DEPT Phu Weir MD [address] [facility] [address] [place] [address] Social History Tobacco Use Types Packs/Day Years Used Date Smoking Tobacco: Some Days Cigarettes 0.1 28 Pipe Smokeless Tobacco: Former Quit: 05/02/1982 Alcohol Use Standard Drinks/Week Comments Yes 8.3 (1 standard drink = 0.6 oz p ure alcohol) Sex and Gender Information Value Date Recorded Sex Assigned at Not on file Legal Sex Male 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
--- OUTSIDE RECORDS SUMMARY | 2024-12-04 10:16 | XMS_ITS | Encounter Summary ---
Author Organization [facility] Address [address] [facility] [address] [place] [address] Care Team Providers Care Brim Rounder Name Role Phone Kenny Boateng DO Primary Care Provider [phone]- [phone] Phu Weir MD Unavailable [phone] Encounter Details Date Type Department Care Team (Late st Contact Info) Description 10/04/2018 Lab Requisition [facility] Care DermPath Lab [address] [facility] [place] [address] Daniela Thornton MD [address] [facility] [address] [place] [address] Social History Tobacco Use Types Packs/Day Years Used Date Smoking Tobacco: Some Days Cigarettes 0.1 28 Pipe Smokeless Tobacco: Former Quit: 05/02/1982 Alcohol Use Standard Drinks/Week Comments Yes 8.3 (1 standard drink = 0.6 oz p ure alcohol) Sex and Gender Information Value Date Recorded Sex Assigned at Not on file 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 SKIN, left upper arm: BENIGN VERRUCOUS KERATOSIS (L82.1) EPIDERMAL NECROSIS SUGGESTIVE OF EXCORIATION (L98.499) 9 12:31 PM CDT DERMATOPATHOLOGY LABORATORY at 1231 CDT Clinical History ISK vs other. 9 12:31 [...] characteristic determined by the Dermatopathology Laboratory at [facility], directed by Dr. Naheed Phipps. These tests need not be, and therefore are not, approved by the [place] Food and Drug Administration. The tests are used for clinical purposes. Billing Codes Specimen Charges Stain Charges 10602 1 12:31 PM CDT DERMATOPATHOLOGY LABORATORY Embedded Images 12:31 PM CDT DERMATOPATHOLOGY LABORATORY Pathology/Cytolog y TISSUE SPECIMEN FROM SKIN / Unknown 10/03/2018 10/04/2018 7:09 AM CDT Daniela Thornton MD LAB - PATHOLOGY/CYTOLOGY OR DERABLES Final Result DERMATOPATHOLOGY LABORATORY [facility] - Department of Dermatology [address] 5th Floor Lab [address] [phone] documented in this encounter Visit Diagnoses Not on filedocumented in this encounter Care Teams Brim Rounder Relationship Specialty Start Date End Date Kenny Boateng DO [address] [facility] [address] [address] PCP - General Internal Medicine 01/03/12 Phu Weir MD [address] [facility] [address] [address] Neurological Surgery 02/21/12 documented as of this encounter
--- OUTSIDE RECORDS SUMMARY | 2024-12-04 10:16 | XMS_ITS | Clinical Summary ---
Author Organization [facility] Address [address] [place] [address] Care Team Providers Care Fire Investigation Manager Name Role Phone JohanKenny lorenzo Jessy ALEJO Primary Care Provider [phone] Phu Weir MD Unavailable [phone] Source Comments [facility],non-owned Affiliates and Associated Physician Practices is amultiple site organization consisting of ambulatory clinics and hospital sitesin [place], [place], [place] and [place]. This disclosure is being madepursuant to the Care Everywhere program and may not contain all information available regarding this patient. Last updated 18.[facility] Allergies No known active allergies Medications * Be aware that medications may not be up to date on this document. Alwaysverify current medications with the patient. Tadalafil (CIALIS PO) Take by mouth. Active Esomeprazole Magnesium (NEXIUM PO) Take by mouth. Active oxymetazoline (AFRIN NASAL SPRAY) 0.05 % nasal spray [place] 1 [place] into each nostril 2 times daily. 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 Not on file Not [...] 2:34 PM CDT Height 170.2 cm (5' 7) 11/18/2014 2:34 PM CDT Body Mass Index [...] this topic Medical Devices Implanted Type Area Admitting Interviewer Device Identifier Shelf Expiration Date Model / Serial / Lot Gemma Zuletax Bone 1.0cc - [id number] Implanted:Qty : 1 on 05/02/2014 by Phu Weir MD at [facility] Spine Cervical Spinal [employer] 11/29/2016 [id number] / [id number] / Space Cerv - [id number] Implanted:Qty : 1 on 05/02/2014 by Phu Weir MD at [facility] Spine Cervical Medtronic [employer]or [employer] 02/19/2017 [facility] MEDTRONIC / [id number] / [id number] Description:Cervical 4-5 SN#[id number] Space Cerv - [id number] Implanted:Qty : 1 on 05/02/2014 by Phu Weir MD at [facility] Spine Cervical Medtronic [employer] 01/28/2017 [facility] [employer] / [id number] / [id number] Description:Cervical 5-6 Space Cerv - [id number] Implanted:Qty : 1 on 05/02/2014 by Phu Weir MD at [facility] Spine Cervical Medtronic [employer] 01/24/2017 [facility] [employer] / [id number] / [id number] Description:Cervical 6-7 Plate Ant Cerv Assem 62.5mm Implanted:Qty : 1 on 05/02/2014 by Phu Weir MD at [facility] Spine Cervical Medtronic [employer] [id number] / / Scrw Self Drill Fuad 4.0 X 15 Implanted:Qty : 2 on 05/02/2014 by Phu Weir MD at [facility] Spine Cervical Medtronic [employer] [id number] / / Scrw Self Drill Fuad 4.0 X 17 Implanted:Qty : 6 on 05/02/2014 by Phu Weir MD at [facility] Spine Cervical Medtronic Sofamor [employer]ane[employer] Spine [id number] / / Insurance [facility] [employer]ETNA [facility] SELF PAY NO INSURANCE Member Subscriber Plan / Payer (Ef fective for All Dates) Name:Giacomo Arce Member ID:Not on file Relation to Subscriber:Self Name:Giacomo Arce Subscriber ID:Not on file Payer ID:Not on file Group ID:Not on file Type:Self Pay Address: [place], [place] Advance Directives * Full Code (Latest Code Status on File) Date Activated Date Inactivated Comments 05/02/2014 1:29 PM 05/02/2014 8:24 PM Care Teams Fire Investigation Manager Relationship Specialty Start Date End Date Kenny Boateng DO [address] [facility] [address] [place] [address] PCP - General Internal Medicine 01/03/12 Phu Weir MD [address] [facility] [address] [place] [address] Neurological Surgery 02/21/12
== END 2024-12-04 10:12 | disposition home or self-care (01) ==
LOC: ANHIMG 10:14
PROVIDERS: PCP Internal Medicine; Visit Provider Internal Medicine
DX: S93.409A Sprain of unspecified ligament of unspecified ankle, initial encounter (principal); X58.XXXA Exposure to other specified factors, initial encounter
CPT/HCPCS: 73600

== ENCOUNTER 2024-12-27 13:11 | Outpatient (CLI) | payer MEDICARE, SELFPAY ==
--- OUTSIDE RECORDS SUMMARY | 2024-12-27 13:29 | XMS_ITS | Clinical Summary ---
Author Organization [facility] Address [address] [place] [address] Care Team Providers Care Natural Resources Specialist Name Role Phone Kenny Boateng MD Primary Care Provider +1- [phone] Allergies Active Allergy Reactions Criticality Noted Date [...] would recommend that he reestablish with a photographers' model. If his endoscopic procedures cannot be scheduled [...] (03/02/2021): Added automatically from request for surgery [id number] Surgical History Surgery Date Site/Laterality Comments ANTERIOR [...] on file Legal Sex Male 9:15 PM DISTANCE LEARNING PROGRAM COORDINATOR Gender Identity Not on file Sexual Orientation [...] 9:30 AM CDT Height 170.2 cm (5' 7) 12/27/2023 9:30 AM CDT Body Mass Index [...] Attending MD: Sarina Castillo MD,PHD Room: [facility] ENDOSCOPY ROOM 03 Note Status: Finalized Procedure: [...] The scope was passed under direct vision.The [id number] was introduced through the anusand advanced to [...] Maintenance Insurance GENERIC COPAY ASSIST [address] [facility] [id number] [place] [address] [facility] AETNA SIG [id number] [facility] Advance Directives For more information, please contact: [phone] * Full Code (Latest Code Status on File) Date Activated Date Inactivated Comments 03/01/2022 8:19 AM 03/01/2022 3:16 PM * Full Code Date Activated Date Inactivated Comments 03/11/2021 1:33 PM 03/11/2021 8:34 PM Care Teams Natural Resources Specialist Relationship Specialty Start Date End Date Kenny Boateng MD [address] [place] [address] PCP - General 07/07/16
--- OUTSIDE RECORDS SUMMARY | 2024-12-27 13:29 | XMS_ITS | Referral Summary ---
Author Organization [facility] Address [address] [place] [address] Care Team Providers Care Receptionist Name Role Phone Kenny Boateng MD Primary Care Provider +1- [phone] Allergies Active Allergy Reactions Criticality Noted Date [...] would recommend that he reestablish with a plaster die maker. 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 Gender Identity Not on file Sexual Orientation [...] Male Attending MD: Sarina Castillo MD,PHD Room: [facility] ENDOSCOPY ROOM 03 Note Status: Finalized [...] The scope was passed under direct vision.The [id number] was introduced through the anusand advanced to [...] Health Maintenance Insurance GENERIC COPAY ASSIST [address] [facility] [id number] [employer]ET[employer] SIG [id number] [facility] Advance Directives For more information, please contact: [phone] * Full Code (Latest Code Status on File) Date Activated Date Inactivated Comments 03/01/2022 8:19 AM 03/01/2022 3:16 PM * Full Code Date Activated Date Inactivated Comments 03/11/2021 1:33 PM 03/11/2021 8:34 PM Care Teams Receptionist Relationship Specialty Start Date End Date Kenny Boateng MD [address] [facility] [address] [place], [place] [id number] PCP - General 07/07/16
--- OUTSIDE RECORDS SUMMARY | 2024-12-27 13:29 | XMS_ITS | Encounter Summary ---
Author Organization [facility] Address [address] [facility] [place] [address] Care Team Providers Care Electric Meter Repairer Name Role Phone Kenny Boateng DO Primary Care Provider [phone]- [phone] Phu Weir MD Unavailable Encounter Details Date Type Department Care Team (Late st Contact Info) Description 07/23/2014 Therapy Visit EXTERNAL NON-[facility] DEPT Phu Weir MD [address] [facility] [address] [place] [address] Social History Tobacco Use Types Packs/Day Years Used Date Smoking Tobacco: Some Days Cigarettes 0.1 28 Pipe Smokeless Tobacco: Former Quit: 05/02/1982 Alcohol Use Standard Drinks/Week Comments Yes 8.3 (1 standard drink = 0.6 oz p ure alcohol) Sex and Gender Information Value Date Recorded Sex Assigned at Not on file 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
--- OUTSIDE RECORDS SUMMARY | 2024-12-27 13:29 | XMS_ITS | Clinical Summary ---
Author Organization [facility] Address [address] [place] [address] Care Team Providers Care Lean Engineer Name Role Phone JohanKenny lorenzo Jessy ALEJO Primary Care Provider [phone]- [phone] Phu Weir MD Unavailable [phone] Source Comments [facility],non-owned Affiliates and Associated Physician Practices is amultiple site organization consisting of ambulatory clinics and hospital sitesin [place], [place], [place] and [place]. This disclosure is being madepursuant to the Care Everywhere program and may not contain all information available regarding this patient. Last updated 18.[facility] Allergies No known active allergies Medications * Be aware that medications may not be up to date on this document. Alwaysverify current medications with the patient. Tadalafil (CIALIS PO) Take by mouth. Active Esomeprazole Magnesium (NEXIUM PO) Take by mouth. Active oxymetazoline (AFRIN NASAL SPRAY) 0.05 % nasal spray [place] 1 [place] into each nostril 2 times daily. 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 Not on [...] this topic Medical Devices Implanted Type Area Signing Teacher Device Identifier Shelf Expiration Date Model / Serial / Lot Gemma Zuletax Bone 1.0cc - [id number] Implanted:Qty : 1 on 05/02/2014 by Phu Weir MD at [facility] Spine Cervical Spinal [employer] 11/29/2016 [id number] / [id number] / Space Cerv - [id number] Implanted:Qty : 1 on 05/02/2014 by Phu Weir MD at [facility] Spine Cervical Medtronic [employer] 02/19/2017 [facility] MEDTRONIC / [id number] / [id number] Description:Cervical 4-5 SN#[id number] Space Cerv - [id number] Implanted:Qty : 1 on 05/02/2014 by Phu Weir MD at [facility] Spine Cervical Medtronic [employer] 01/28/2017 [facility] [employer] / [id number] / [id number] Description:Cervical 5-6 Space Cerv - [id number] Implanted:Qty : 1 on 05/02/2014 by Phu Weir MD at [facility] Spine Cervical Medtronic [employer] 01/24/2017 [facility] MED[employer] / [id number] / [id number] Description:Cervical 6-7 Plate Ant Cerv Assem 62.5mm Implanted:Qty : 1 on 05/02/2014 by Phu Weir MD at [facility] Spine Cervical Medtronic [employer] [id number] / / Scrw Self Drill Fuad 4.0 X 15 Implanted:Qty : 2 on 05/02/2014 by Phu Weir MD at [facility] Spine Cervical Medtronic [employer] [id number] / / Scrw Self Drill Fuad 4.0 X 17 Implanted:Qty : 6 on 05/02/2014 by Phu Weir MD at [facility] Spine Cervical Medtronic Sof[employer] Spine [id number] / / Insurance [facility] AETNA [facility] SELF PAY NO INSURANCE Member Subscriber Plan / Payer (Ef fective for All Dates) Name:Giacomo Arce Member ID:Not on file Relation to Subscriber:Self Name:Giacomo Arce Subscriber ID:Not on file Payer ID:Not on file Group ID:Not on file Type:Self Pay Address: [place], [place] Advance Directives * Full Code (Latest Code Status on File) Date Activated Date Inactivated Comments 05/02/2014 1:29 PM 05/02/2014 8:24 PM Care Teams Lean Engineer Relationship Specialty Start Date End Date Kenny Boateng DO [address] [facility] [address] [place] [address] PCP - General Internal Medicine 01/03/12 Phu Weir MD [address] [facility] [address] [place] [address] Neurological Surgery 02/21/12
--- OUTSIDE RECORDS SUMMARY | 2024-12-27 13:29 | XMS_ITS | Encounter Summary ---
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
--- OUTSIDE RECORDS SUMMARY | 2024-12-27 13:29 | XMS_ITS | Encounter Summary ---
Author Organization [facility] [email or web address] [facility] Address [address] [place] [address] Phone Care Team Providers Care Control Cabinet Assembler Name Role Phone Kenny Boaetng MD Primary Care Provider [phone]- [phone] Encounter Details Date Type Department Care Team [...] on file Legal Sex Male 9:15 PM HAND DEVELOPER Gender Identity Not on file Sexual Orientation [...] on filedocumented in this encounter Care Teams Control Cabinet Assembler Relationship Specialty Start Date End Date Kenny Boateng MD [address] [facility] [address] [place] [address] PCP - General 07/07/16 documented as of this encounter
--- OUTSIDE RECORDS SUMMARY | 2024-12-27 13:29 | XMS_ITS | Encounter Summary ---
Author Organization [facility] Address [address] [place] [address] Phone Care Team Providers Care Product Tester Name Role Phone Kenny Boateng MD Primary Care Provider +1- [phone] Kenny Boateng MD Primary Care Provider +1- [phone] Encounter Details Date Type Department Care Team (Late st Contact Info) Description 10/07/2015 Orders Only [facility] Scanning, Provider Social History Tobacco Use Types Packs/Day Years Used Date Smoking Tobacco: Never Assessed Sex and Gender Information Value Date Recorded Sex Assigned at Not on file Legal Sex Male 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
--- OUTSIDE RECORDS SUMMARY | 2024-12-27 13:29 | XMS_ITS | Encounter Summary ---
Author Organization [facility] Address [address] [place] [address] Care Team Providers Care Director Of Programming Name Role Phone Kenny Boateng DO Primary Care Provider [phone]- [phone] Phu Weir MD Unavailable [phone] Encounter Details Date Type Department Care Team (Late st Contact Info) Description 10/04/2018 Lab Requisition [facility] Care DermPath Lab [address] [facility] [place] [address] Daniela Thornton MD [address] [facility] [address] [place] [address] Social History Tobacco Use Types Packs/Day Years Used Date Smoking Tobacco: Some Days Cigarettes 0.1 28 Pipe Smokeless Tobacco: Former Quit: 05/02/1982 Alcohol Use Standard Drinks/Week Comments Yes 8.3 (1 standard drink = 0.6 oz p ure alcohol) Sex and Gender Information Value Date Recorded Sex Assigned at Not on file 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 Naheed Phipps. These tests need not be, and therefore are not, approved by the [place] Food and Drug Administration. The tests are used for clinical purposes. Billing Codes Specimen Charges Stain Charges 00192 1 12:31 PM CDT DERMATOPATHOLOGY LABORATORY Embedded Images 12:31 PM CDT DERMATOPATHOLOGY LABORATORY Pathology/Cytolog y TISSUE SPECIMEN FROM SKIN / Unknown 10/03/2018 10/04/2018 7:09 AM CDT Daniela Thornton MD LAB - PATHOLOGY/CYTOLOGY OR DERABLES Final Result DERMATOPATHOLOGY LABORATORY [facility] - Department of Dermatology [address] [facility], 5th Floor Lab [address] [phone] documented in this encounter Visit Diagnoses Not on filedocumented in this encounter Care Teams Director Of Programming Relationship Specialty Start Date End Date Kenny Boateng DO [address] [facility] [address] [address] PCP - General Internal Medicine 01/03/12 Phu Weir MD [address] [facility] [address] [address] Neurological Surgery 02/21/12 documented as of this encounter
[2024-12-27 13:52] LABS: Alanine Aminotransferase 14 U/L (6-50); Albumin Level 4.2 g/dL (3.5-5.1); Alkaline Phosphatase 52 U/L (38-126); Anion Gap 7 mmol/L (4-12); Aspartate Amino Transferase 28 U/L (17-59); Bilirubin,Total 0.6 mg/dL (0.2-1.3); Blood Urea Nitrogen 12 mg/dL (9-20); Calcium 8.9 mg/dL (8.4-10.2); Carbon Dioxide 26 mmol/L (22-30); Chloride 103 mmol/L (98-107); Estimated Glomerular Filt Rate > 60; Glucose 89 mg/dL (65-110); Potassium 3.7 mmol/L (3.4-5.0); Sodium 136 mmol/L (137-145); Total Protein 7.2 g/dL (6.3-8.2)
[2024-12-27 14:21] LABS: Prostate Specific Antigen 0.9 ng/mL (< OR = 4.0)
== END 2024-12-27 13:12 | disposition home or self-care (01) ==
PROVIDERS: PCP Internal Medicine; Visit Provider Internal Medicine
DX: E78.5 Hyperlipidemia, unspecified (principal); Z12.5 Encounter for screening for malignant neoplasm of prostate
CPT/HCPCS: 36415; 80053; 84153; G0103